=== PATIENT | male | born 1980 | race Caucasian/White ===

== ENCOUNTER 2020-05-28 07:35 | Day surgery (SDC) | payer BC, SELFPAY ==
[2020-05-14 14:53] VITALS: BMI 37.9
[2020-05-28] VITALS (7 sets, daily range): BP systolic 120–136; BP diastolic 67–94; PULSE 53–96; RESP 16; TEMP 36.3–36.8; O2SAT 95–99; BMI 37.1
[2020-05-28] MEDS: Lactated Ringers 1,000 ML 100 ML IV (08:00)
--- NOTE | 2020-05-28 08:42 | PCM.HP.BLA ---
History and Physical Date of Admission: 05/28/20 [facility] [address] [place], [place] [id number] OFFICE VISIT Date of Service: 05/14/20 MR#: [id number] Acct: [id number] Name: DARLING GODOY Rep #: [id number] : 1980 Provider: Dr. Benny Sheehan MD Age/Sex: 40/M Location: [facility] Status: Signed Intake Vital Signs 05/14/20 Height 5 ft 9 in 05/14/20 Weight: 257 lb 05/14/20 BMI 37.9 05/14/20 BP 130/83 H 05/14/20 Blood Pressure Location Rt brachial 05/14/20 Position Sitting 05/14/20 Respiration 18 05/14/20 Pulse 62 05/14/20 Pulse Source Monitor 05/14/20 Temp 97.5 F L 05/14/20 Temp Source Temporal 05/14/20 Pulse Oximetry (%) 97 05/14/20 Oxygen Delivery Method room air Intake Visit Reasons: Hemorrhoids Chief Complaint: hemorrhoids Ortho Nurse Required: No Is patient in pain?: No Allergies No Known Allergies Allergy (Unverified 05/19/20 10:17) Medications Multivitamin 1 ea PO DAILY 05/19/20 [History Confirmed 05/19/20] [facility] Medical History Hemorrhoids (Acute) Surgical History History of bilateral carpal tunnel release (Acute) History of umbilical hernia repair (Acute) Family History Grandmother Breast cancer Grandfather Diabetes Mother Hypertension Social History (Updated 05/28/20 @ 00:[address] Benny Sheehan MD) Smoking Status: Former smoker alcohol intake: current substance use type: does not use HPI HPI HPI: DARLING GODOY is a 40 M who presents to the office today for HPI HPI Surgical H&P: Yes HPI: DARLING GODOY is a 40 M who presents to the office today for Evaluation for rectal bleeding. It is 19 the patient had aphasia he has been noticing now occasional bleeding occasional pain lots of pressure. It is uncomfortable for him to sit on hard surfaces or ride a bike. ROS General General: No weight change, appetite, fatigue, colon cancer, breast cancer or weakness HEENT HEENT: No difficulty swallowing, eye injury, eye surgery, swollen glands or hoarseness Endo Endocrine: No thyroid disease, diabetes mellitus, thyroid cancer, Hair loss, heat intolerance or cold intolerance Skin Skin: No rash or changing moles Breast Breast: No left breast lump, right breast lump, nipple discharge, breast pain, abnormal mammogram, abnormal US or breast enlargement Musc Musculoskeletal: No back problems, arthritis, rheumatoid arthritis, gout or joint pain Cardio Cardiovascular: No murmur, pacemaker, heart disease, atrial fibrillation, high blood pressure, heart attack, heart stent, palpitations, shortness of breat with exertion or chest pain Psych Psychiatric: No depression, anxiety or hearing voices Resp Respiratory: No shortness of breath, No sleep apnea, No cough, No COPD, No asthma, No emphysema, No wheezing Gastro Gastrointestinal: No abdominal pain, No nausea or vomiting, No diarrhea, No constipation, No blood in stool, No acid reflux, Yes hemorrhoids, No ulcers, No gallbladder problem, No black,tarry stools Carmine Hematologic: No blood thinners, No blood disorders, No bleeding, No anemia, No blood clots Neuro Neurologic: No system reviewed and no additional complaints, except as docu, No as per HPI, No abnormal walking, No abnormal hearing, No abnormal movements, No abnormal speech, No behavioral changes, No burning sensations, No confusion, No seizure-like activity, No unsteadiness, No dizziness, No localized weakness, No frequent falls, No headache(s), No lack of coordination, No loss of vision, No memory loss, No numbness, No other visual disturbances, No radiating pain, No restless legs, No sensory deficit, No fainting, No tingling, No tremor(s), No weakness, No other Exam Const General: no acute distress, well developed, well hydrated Orientation: oriented to person, oriented to place, oriented to time [facility] Head: normocephalic, atraumatic Ears: external ears normal Mouth: moist mucous membranes Eyes Sclera: sclerae normal Pupils: normal by confrontation Neck Neck: no lymphadenopathy noted Neck mass: No Thyroid: thyroid normal, symmetrical Chest Chest palpation & inspection: normal inspection of the chest Breast Palpation: No nipple discharge Resp Effort & Inspection: normal respiratory effort Auscultation: clear to auscultation bilaterally Percussion: percussion normal Cardio Rate: regular rate Rhythm: regular rhythm Heart Sounds: no murmurs GI Palpation: soft, no hepatosplenomegaly, no masses, nontender Rectal Exam: other Other: Rectal exam deferred. Patient has minimal tenderness in the perianal area no external hemorrhoids to speak of and I really do not see any obvious fissures Extrem General: normal to inspection, no clubbing, cyanosis or edema Assessment & Plan 1. Hemorrhoids, unspecified hemorrhoid type K64.9 2. Rectal hemorrhage K62.5 Plan I have discussed the above with the patient. I have offered the patient colonoscopy for evaluation. I have explained the risks/benefits of the procedure and described the procedure. I have discussed the risks with the patient, including but not limited to: infection, bleeding, perforation of the GI tract requiring emergency surgery, inability to complete the procedure, injury to any internal organs, complications of anesthesia, etc. - the patient understands and agrees to proceed. I have answered all the patient's questions to the patient's satisfaction and the patient has no further questions. The patient has been given instructions for the colon cleansing preparation. Coding Level of Care Code Off vis,new,level 3 Diagnoses Hemorrhoids, unspecified hemorrhoid type K64.9 ??Hemorrhoid type: unspecified Rectal hemorrhage K62.5 COVID (Procedure Consent) Procedure Criteria Procedure Criteria: Yes Elective The surgeon/proceduralist and patient have discussed in detail the risk of exposure to and/or potential harm posed by the COVID-19 virus with having a surgery/procedure at this time versus the risk of? delaying the surgery/procedure. It is not possible to know either the risk of delaying the surgery or procedure or chance of getting an infection with perfect accuracy, but a joint decision was made between the patient and the surgeon/proceduralist ?to proceed at this time with the scheduled surgery/procedure as indicated on the consent form. 05/28/20 0053 <Electronically signed by Benny Sheehan MD> Date Benny Brock Signature: Date (if applicable) CC: Dr. Klarissa Jo MD ~ I have re-examined the patient. There are no clinical changes since date of exam.
--- NOTE | 2020-05-28 09:06 | OP.CCLET_ITS ---
05/28/2020 [address] [place] [address] Re : Colonoscopy procedure for Lyndon Silva Dear Dr. Jo This procedure was performed on Thursday, May 28, 2020. My impressions and recommendations are as follows: Impressions : - Non-bleeding internal hemorrhoids. No specimens collected. - The examination was otherwise normal. Recommendations : - Discharge patient to home. - Resume previous diet. - Use hydrocortisone suppository 25 mg 1 per rectum once a day for 2 weeks. - Repeat colonoscopy in 10 years for screening purposes. - Continue present medications. My findings are described in the full procedure note, which is enclosed. If I can be of further assistance, please feel free to contact me at Doctor phone number(s): , Fax: [phone], Work: . Sincerely, MD Benny Tirado MD 05/28/2020 9:06:07 AM This report has been signed electronically.
--- NOTE | 2020-05-28 09:06 | OP.COLON_ITS ---
Patient Name: Lyndon Silva Procedure Date: 05/28/2020 8:38 AM Date of : 1980 Age: 40 Procedure: Colonoscopy Indications: Rectal bleeding, Suspected hemorrhoids Providers: Benny Sheehan MD Referring MD: Klarissa Jo Medicines: See the Anesthesia note for documentation of the administered medications Patient Profile: This is a 40 year old male. Refer to note in patient chart for documentation of history and physical. Last Colonoscopy: none. The patient's first colonoscopy is today. Complications: No immediate complications. Procedure: Pre-Anesthesia Assessment: - Prior to the procedure, a History and Physical was performed, and patient medications and allergies were reviewed. The patient's tolerance of previous anesthesia was also reviewed. The risks and benefits of the procedure and the sedation options and risks were discussed with the patient. All questions were answered, and informed consent was obtained. Prior Anticoagulants: The patient has taken no previous anticoagulant or antiplatelet agents. ASA Grade Assessment: II - A patient with mild systemic disease. After reviewing the risks and benefits, the patient was deemed in satisfactory condition to undergo the procedure. After I obtained informed consent, the scope was passed under direct vision. Throughout the procedure, the patient's blood pressure, pulse, and oxygen saturations were monitored continuously. The Colonoscope was introduced through the anus and advanced to the cecum, identified by appendiceal orifice and ileocecal valve. The colonoscopy was performed without difficulty. The patient tolerated the procedure well. The quality of the bowel preparation was good. Scope In: 8:48:26 AM Scope Withdrawal Time 0 hours 6 minutes 16 seconds Scope Out: 8:57:27 AM Total Procedure Duration Time 0 hours 9 minutes 1 second Findings: Non-bleeding internal hemorrhoids were found during retroflexion. The hemorrhoids were moderate, medium-sized and Grade II (internal hemorrhoids that prolapse but reduce spontaneously). No biopsies or other specimens were collected for this exam. The patient does have irritation within his rectum. He also has circumferential hemorrhoidal disease with a larger bundle identified as well. I think he would probably benefit from having some treatment with some steroid suppositories. The exam was otherwise without abnormality. Impression: - Non-bleeding internal hemorrhoids. No specimens collected. - The examination was otherwise normal. Recommendation: - Discharge patient to home. - Resume previous diet. - Use hydrocortisone suppository 25 mg 1 per rectum once a day for 2 weeks. - Repeat colonoscopy in 10 years for screening purposes. - Continue present medications. Procedure Code(s): --- Professional --- 57437, Colonoscopy, flexible; diagnostic, including collection of specimen(s) by brushing or washing, when performed (separate procedure) Diagnosis Code(s): --- Professional --- K64.1, Second degree hemorrhoids K62.5, Hemorrhage of anus and rectum CPT copyright 2017 [employer]. All rights reserved. The codes documented in this report are preliminary and upon day treatment clinician/art therapist review may be revised to meet current compliance requirements. MD Benny Tirado MD 05/28/2020 9:06:07 AM This report has been signed electronically. Number of Addenda: 0 Note Initiated On: 05/28/2020 8:38 AM
== END 2020-05-28 09:50 | disposition home or self-care (01) ==
LOC: EN 07:36 → AC 07:36
PROVIDERS: Anesthesiology; PCP Family Medicine; Referring Provider Family Medicine; Visit Provider Surgery
PROC: 0DJD8ZZ Inspection of Lower Intestinal Tract, Via Natural or Artificial Opening Endoscopic (ICD-10-PCS; CPT 45378; principal; 2020-05-28 08:40)
DX: K64.1 Second degree hemorrhoids (principal); Z11.59 Encounter for screening for other viral diseases; Z87.891 Personal history of nicotine dependence
CPT/HCPCS: 45378; 87635; 94799; J7120; J1610; U0003

== ENCOUNTER → 2021-03-25 11:52 | Outpatient (CLI) | payer BC, SELFPAY ==
[2020-05-28 07:51] VITALS: BMI 37.1
--- NOTE | 2021-03-25 11:55 | RAD_ITS ---
STUDY: X-RAY - ABDOMEN/PELVIS REASON FOR EXAM: Male, 41 years old. ABDOMINAL PAIN TECHNIQUE: AP supine and upright views of the abdomen and pelvis. COMPARISON: None. FINDINGS: Normal visualized lung bases. There is an abundance of fecal material throughout the colon. There is no demonstrated free abdominal air. The visualized liver, spleen and kidneys are grossly normal in size and morphology. Normal soft tissue structures. Normal visualized osseous structures. RAD/Abd Inc Decub and/or Erect IMPRESSION: Large amount of fecal material is seen in the colon. Electronically Signed: Jamel Dowling MD at 15:24 EDT , Service support ,
== END ==
PROVIDERS: PCP Family Medicine; Referring Provider Family Medicine; Visit Provider Family Medicine
DX: R10.9 Unspecified abdominal pain (principal)
CPT/HCPCS: 74019

== ENCOUNTER → 2022-07-20 | Outpatient (CLI) | payer BC, SELFPAY ==
[2022-07-20 18:17] LABS: ALB/GLOB Ratio 1.1 RATIO (0.9-2.4); AST(SGOT) 29 U/L (15-37); Alanine Aminotransfer ALT/SGPT 50 U/L (16-61); Alkaline Phosphatase 41 U/L (45-117); Anion Gap 8 (5-15); BUN 15 mg/dL (7-18); BUN/Creat Ratio 16.1 RATIO (10-20); Calcium,Total 9.2 mg/dL (8.5-10.1); Chloride 106 mmol/L (98-107); Creatinine, Serum 0.93 mg/dL (0.70-1.30); EST Glomerular Filtration Rate 94 mL/min (>60); Est Glom Filt Rate - Afr Amer 114 mL/min (>60); Globulin 3.5 g/dL (2.2-4.2); Glucose 96 mg/dL (74-106); Potassium 3.9 mmol/L (3.5-5.1); Protein, Total 7.5 g/dL (6.4-8.2); Sodium Level 139 mmol/L (136-145)
[2022-07-20 18:20] LABS: Absolute Lymphocyte Count 3.48 X10^3/uL (0.83-4.51); Absolute Neutrophil Count 4.3 X10^3/uL (2.0-7.7); Basophil# 0.07 X10^3/uL; Basophil% 0.8 % (0-1); Eosinophil# 0.17 X10^3/uL; Eosinophils% 1.9 % (0-5); Hematocrit 43.2 % (40-54); Hemoglobin 15.1 g/dL (13.0-16.5); Lymphocyte # 3.48 X10^3/ul (0.83-4.51); Lymphocyte % 39.4 % (19-41); Mean Corpuscular Hgb 29.2 pg (27.0-32.0); Mean Corpuscular Volume 83.4 fL (80-94); Mean Platelet Vol. 9.9 fl (6.2-12.0); Monocyte# 0.83 X10^3/uL; Monocyte% 9.4 % (0-10); NRBC Flagged by Analyzer 0 % (0-5); Neutrophil # 4.26 X10^3/uL (2.7-7.7); Neutrophil % 48.3 % (47-70); Platelet Count 375 K/mm3 (150-450); RBC Distribution Width CV 11.8 % (11.6-14.6); RBC Distribution Width SD 35.8 fl (35.1-43.9); Red Blood Count 5.18 M/mm3 (4.6-6.2); White Blood Count 8.8 K/mm3 (4.4-11.0)
[2022-07-20 18:24] LABS: Erythrocyte Sedimentation Rate 3 mm/hr (0-20)
== END | disposition home or self-care (01) ==
LOC: MFPLAB 15:10
PROVIDERS: PCP Family Medicine; Referring Provider Family Medicine; Visit Provider Family Medicine
DX: R55 Syncope and collapse (principal)
CPT/HCPCS: 36415; 80053; 82533; 85025; 85652

== ENCOUNTER → 2024-08-09 | Outpatient (CLI) | payer BC, SELFPAY ==
[2024-08-09 12:22] LABS: Protein, Urine (Random) 19.1 mg/dL (<11.9); Protein:Creat Ratio 153 mg/g CRE (0-200)
[2024-08-09 12:29] LABS: Anion Gap 5 (5-15); BUN 14 mg/dL (7-18); BUN/Creat Ratio 13.5 RATIO (10-20); Calcium,Total 9.2 mg/dL (8.5-10.1); Chloride 106 mmol/L (98-107); Cholesterol 272 mg/dL (200); Creatinine, Serum 1.04 mg/dL (0.70-1.30); EST Glomerular Filtration Rate 82 mL/min (>60); Est Glom Filt Rate - Afr Amer 99 mL/min (>60); Glucose 95 mg/dL (74-106); High Density Lipoprotein 41 mg/dL; Sodium Level 138 mmol/L (136-145); Triglycerides 439 mg/dL
== END | disposition home or self-care (01) ==
LOC: MTLAB 09:35
PROVIDERS: PCP Family Medicine; Referring Provider Family Medicine; Visit Provider Family Medicine
DX: I10 Essential (primary) hypertension (principal)
CPT/HCPCS: 80048; 80061; 82570; 84156

== ENCOUNTER → 2024-10-31 | Outpatient (CLI) | payer BC, SELFPAY ==
[2024-10-31 15:51] LABS: AST(SGOT) 26 U/L (15-37); Alanine Aminotransfer ALT/SGPT 54 U/L (16-61); Cholesterol 169 mg/dL (200); High Density Lipoprotein 45 mg/dL; Triglycerides 254 mg/dL; Very Low Density Lipoprotein 51 mg/dL (5-40)
== END | disposition home or self-care (01) ==
LOC: MTLAB 11:21
PROVIDERS: PCP Family Medicine; Referring Provider Family Medicine; Visit Provider Family Medicine
DX: E78.2 Mixed hyperlipidemia (principal)
CPT/HCPCS: 36415; 80061; 84450; 84460

== ENCOUNTER → 2025-09-19 | Outpatient (CLI) | payer BC, SELFPAY ==
--- OUTSIDE RECORDS SUMMARY | 2025-09-19 17:36 | XMS RPT_ITS | CCD ---
Author Organization [facility] CliniSywi Care Team Providers Care Stock Plan Administrator Name Role Phone Adebayo Thee Unavailable Unavailable Klarissa Jo Unavailable Unavailable Klarissa Jo Primary Care Provider RONAK EDDY DO Attending Unavailable GUILHERME CRONIN, DR STALLINGS Primary Care Unavailable GUILHERME CRONIN, DR STALLINGS Primary Care Physician Klarissa Jo Primary Care Provider [phone] Jolliff, Klarissa S Referring Unavailable Jolliff, Klarissa S Primary Care Unavailable Jolliff, Klarissa S Attending Unavailable Jolliff, Klarissa S Attending Unavailable Jolliff, Klarissa S Referring Unavailable Jolliff, Klarissa S Primary Care Unavailable CECILIA ALY Attending Unavailable KLARISSA JO Primary Care Unavailable Allergies Allergy Classification Reported Allergen(s) Allergy Type Date of Onset Reaction(s) Facility (1 source) Azithromycin Drug Allergy [facility] [place] [address] [facility] Work Phone: (10 sources) Erythromycin; Translations: [erythromycin] Drug Allergy 09-13-2017 Rash [facility] Medications Current Medications Medication Drug Class(es) Dates Sig (Normalized) Sig (Original) [id number] 200 actuat albuterol 0.09 mg/actuat metered dose inhaler (11 sources) beta2-Adrenergic Agonist Start: 03-25-2024 take 2 puff(s) by inhalation every four hours as needed for wheezing albuterol HFA (PROVENTIL HFA, VENTOLIN HFA) 90 mcg/actuation inhaler Inhale 2 Puffs as instructed every 4 hours as needed for wheezing/shortnes s of breath. 6.7 g 03/25/2024 Active Start: 11-04-2023 take 2 puff(s) by in halation every four hours as needed for wheezing albuterol HFA (PROVENTIL HFA, VENTOLIN HFA) 90 mcg/actuation inhaler Inhale 2 Puffs as instructed every 4 hours as needed for wheezing/shortness of breath. 8 g 11/04/2023 Active Start: 10-06-2022 take 2 puff(s) by in halation every six hours as needed albuterol HFA (PROAIR HFA) 90 mcg/actuation inhaler Inhale 2 Puffs as instructed every 6 hours as needed. 8.5 g 0 10/06/2022 Active Comment on above: Inhale 2 Puffs as in structed every 6 hours as needed. benzonatate 100 mg oral capsule (3 sources) Non-narcotic Antitussive Start: take 1 capsule by mouth every eight hours as needed benzonatate (TESSALON PERLE) 100 mg capsule Take 1 capsule by mouth three times a day as needed. 21 capsule 03/25/2024 Active doxycycline hyclate 100 mg oral capsule (2 sources) Tetracycline-class Drug Start: End: 4 doxycycline hyclate 100 mg oral capsule Dose : 100 mg = 1 cap(s), Oral, BID, X 7 day(s), # 14 cap(s), 0 Refill(s), 11/14/23 8:52:00 PM EST, 118 Start Date: 11/07/23 Stop Date: 11/14/23 Status: Ordered Start: 10-06-2022 End: 10-13-2022 take 1 tablet by mouth twice daily doxycycline monohydrate 100 mg tablet Take 1 tablet by mouth twice daily for 7 days. 14 tablet 0 10/06/2022 10/13/2022 Active Comment on above: Take 1 tablet by rosalee twice daily for 7 days. hydrocortisone acetate 25 mg rectal suppository (1 source) Corticosteroid Start: take 25 mg rectal route at bedtime Hydrocortisone Acetate Active 25 MG RECTAL AT BEDTIME May 28, 2020 12:00am Multivitamin preparation (1 source) Start: Multivitamin Active 1 EACH PO DAILY May 19, 2020 12:00am Completed/Discontinued Medications Medication Drug Class(es) Dates Sig (Normalized) Sig (Original) acetaminophen 325 mg / HYDROcodone bitartrate 5 mg oral tablet (5 sources) Opioid Agonist Start: 09-20-2017 End: 03-21-2024 take 1 tablet by mouth every six hours as needed HYDROcodone-acetam inophen (NORCO) 5-325 mg per tablet Take 1 tablet by mouth every 6 hours as needed for Pain (pain greater than 5 out of 10 on a scale of 1-10). 20 tablet 09/20/2017 03/21/2024 Discontinued (Other) Comment on above: Take 1 tablet by rosalee every 6 hours as needed for Pain (pain greater than 5 out of 10 on a scale of 1-10). amoxicillin 500 mg oral tablet (4 sources) Penicillin-class Antibacterial Start: 03-21-2024 End: 03-31-2024 take 1 tablet by mouth twice daily Amoxicillin 500 mg tablet Indications: Sore throat , Exposure to strep throat Take 1 tablet by mouth two times a day for 10 days. 20 tablet 03/21/2024 03/31/2024 Inhalational Spacing Device (1 source) Start: 11-04-2023 End: 11-04-2023 Inhalational Spacing Device 1 Device one time only for 1 dose. 1 Each 11/04/2023 11/04/2023 No Reported Medications (1 source) No Reported Medications Refills: 0 Active predniSONE 20 mg oral tablet (6 sources) Start: 03-25-2024 End: 03-29-2024 take 2 tablets by mouth once daily at mealtime predniSONE (DELTASONE) 20 mg tablet Take 2 tablets by mouth once daily for 4 days. Take daily with food. 8 tablet 03/25/2024 03/29/2024 Start: 11-04-2023 End: 03-21-2024 predniSONE (DELTASONE) 10 mg tablet Take 4 tabs daily for 3 days, then 2 tabs daily for 3 days, then 1 tab daily for 3 days with food. 21 tablet 11/04/2023 03/21/2024 Discontinued (Other) Start: 10-06-2022 End: 10-11-2022 take 4 tablets by mouth once daily predniSONE (DELTASONE) 10 mg tablet Take 4 tablets by mouth once daily for 5 days. 20 tablet 0 10/06/2022 10/11/2022 Comment on above: Take 4 tablets by mo [facility] once daily for 5 days. Problems Active Problems Problem Classification Problem Date Documented Date Episodic/Chronic Chronic obstructive pulmonary disease and bronchiectasis (4 sources) Bronchitis; Translations: [Bronchitis, not specified as acute or chronic] Onset: 11-07-2023 Episodic Disorders of lipid metabolism (1 source) Mixed hyperlipidemia; Translations: [Mixed hyperlipidemia] Onset: 11-21-2024 Chronic Essential hypertension (1 source) Essential (primary) hypertension; Translations: [Essential (primary) hypertension] Onset: 09-20-2024 Chronic Fever of unknown origin (1 source) Fever; Translations: [Fever, unspecified] Episodic Hemorrhoids (1 source) Internal hemorrhoids; Translations: [Internal hemorrhoids] Episodic Immunizations and screening for infectious disease (1 source) Exposure to streptococcal pharyngitis; Translations: [Contact with and (suspected) exposure to other bacterial communicable diseases] 03-21-2024 Episodic Other lower respiratory disease (1 source) Wheezing; Translations: [Wheezing] 11-04-2023 Episodic Other lower respiratory disease (1 source) Cough; Translations: [Acute cough] 11-04-2023 Episodic Other upper respiratory infections (2 sources) Chronic sinusitis; Translations: [Chronic sinusitis, unspecified] Onset: 08-02-2025 Chronic Other upper respiratory infections (3 sources) Sore throat symptom; Translations: [Acute pharyngitis, unspecified] Episodic Residual codes; unclassified (1 source) Past history of procedure; Translations: [Other specified postprocedural states] Episodic Spondylosis; intervertebral disc disorders; other back problems (2 sources) Intervertebral disc prolapse; Translations: [Other intervertebral disc displacement, lumbar region] Chronic Spondylosis; intervertebral disc disorders; other back problems (1 source) Spinal stenosis of lumbar region; Translations: [Spinal stenosis, lumbar region without neurogenic claudication] Episodic Past or Other Problems Problem Classification Problem Date Documented Da te Episodic/Chronic Abdominal hernia (8 sources) Umbilical hernia; Translations: [Umbilical hernia without obstruction or gangrene] Onset: 09-08-2017 09-08-2017 Episodic Results Test Name Value Interpretation Reference Range Facility [facility] 08-02-2025 CNOV Office Visit (WOUCA) DARLIGN GODOY ([id number]) 1980 M Date Time Provider Department 08/02/25 12:00 PM CECILIA ALY During your visit today, we recorded the following information about you: Temperature Pulse Respiration Blood pressure 97 degrees 60/minute 18/minute 144/91 Weight 126 kg Cecilia Aly APRN.COGNOS TM1 DEVELOPER 08/02/2025 1:21 PM Signed [facility] Subjective Darling Godoy is a 45 year old male. Patient presents with: Cough: Chest congestion, wheezing x1 week Cough The patient is a 45-year-old male with a history of recurrent bronchitis presenting with cough and mild wheezing for 1 week. The patient reports a 1-week history of cough and mild wheezing. He denies fever, body aches, and significant dyspnea. The cough is non-productive and disrupts his sleep. Symptoms worsen in hot environments and improve with cool air and cool fluids. He experiences similar episodes approximately once per year, often lasting about a month. He notes that these episodes are typically triggered by exposure to dust during home projects. He reports a recent exposure while cutting old wood barn siding. He wore a mask during this activity, but only started using it today. He does not have an inhaler at home and does not use a spacer. He reports an allergy to erythromycin. His youngest daughter, who has asthma, has had similar symptoms for the past 2 weeks. Constitutional: (+) insomnia, (-) fever, (-) myalgia Respiratory: (+) cough, (+) wheezing, (-) shortness of breath, (-) sputum production No past medical history on file. PAST SURGICAL HISTORY Procedure Laterality Date PAST SURGICAL HISTORY OF Bilateral 2016 carpal tunnel release RPR UMBILICAL HRNA 5 YRS/> REDUCIBLE 09/20/2017 Hernia repair, umbilical >5yr TONSILLECTOMY HX Bilateral 1997 ALLERGIES Erthromycin [Erythromycin] MEDICATIONS rosuvastatin (CRESTOR) 5 mg tablet Take 5 mg by mouth daily at bedtime. albuterol HFA (PROVENTIL HFA, VENTOLIN HFA) 90 mcg/actuation inhaler Inhale 2 Puffs as instructed every 4 hours as needed for wheezing/shortness of breath. predniSONE (DELTASONE) 20 mg tablet Take 2 tablets by mouth once daily for 7 days. albuterol HFA (PROVENTIL HFA, VENTOLIN HFA) 90 mcg/actuation inhaler Inhale 2 puffs as instructed every 4 hours as needed for wheezing/shortness of breath. doxycycline hyclate (VIBRAMYCIN) 100 mg capsule Take 1 capsule by mouth two times a day for 7 days. albuterol HFA (PROVENTIL HFA, VENTOLIN HFA) 90 mcg/actuation inhaler Inhale 2 Puffs as instructed every 4 hours as needed for wheezing/shortness of breath. (Patient not taking: Reported on 08/02/2025) benzonatate (TESSALON PERLE) 100 mg capsule Take 1 capsule by mouth three times a day as needed. (Patient not taking: Reported on 08/02/2025) FAMILY HISTORY Problem Relation Age of Onset Hypertension Mother Hypertension Father SOCIAL HISTORY[1] Objective BP 144/91 Pulse 60 Temp 36.1 ?C (97 ?F) Resp 18 Wt 126 kg (277 lb 12.5 oz) SpO2 97% BMI 42.24 kg/m? Physical Exam Vitals and nursing note reviewed. Constitutional: General: He is not in acute distress. Appearance: Normal appearance. He is normal weight. He is not ill-appearing or toxic-appearing. HENT: Head: Normocephalic and atraumatic. Right Ear: Tympanic membrane, ear canal and external ear normal. Left Ear: Tympanic membrane, ear canal and external ear normal. Nose: Congestion present. Mouth/Throat: Pharynx: No oropharyngeal exudate or posterior oropharyngeal erythema. Eyes: Extraocular Movements: Extraocular movements intact. Conjunctiva/sclera: Conjunctivae normal. Pupils: Pupils are equal, round, and reactive to light. Cardiovascular: Rate and Rhythm: Normal rate and regular rhythm. Pulses: Normal pulses. Heart sounds: Normal heart sounds. Pulmonary: Effort: No respiratory distress. Breath sounds: No stridor. Wheezing present. No rhonchi or rales. Lymphadenopathy: Cervical: Cervical adenopathy present. Neurological: Mental Status: He is alert. { 1. Sinobronchitis (J32.9) 2. Acute cough (R05.1) - Recurrent bronchial irritation, likely triggered by environmental exposures; no fever, body aches, or productive cough; mild wheezing noted. - Start prednisone. - Start albuterol inhaler; advised use of spacer for optimal medication delivery. - Provided prescription for antibiotic to use if symptoms worsen or fever develops. - Advised use of mask when working with dust or other respiratory irritants. - Discussed importance of establishing care with a new primary care provider for ongoing management. and Recording using [employer] software for draft documentation of the visit was discussed with the patient/authorized b2b sales representative; all questions welcomed and answered. Patient/authorized b2b sales representative agreed to proceed Histo (more content not included)... Normal [facility] AST(SGOT)on 10-31-2024 AST [Catalytic activity/Vol] 26 U/L Normal 15-37 [facility] Comment on above: Performed By: #### L 501.4100, L501.4405, L500.4100 #### [facility] [address] [place], [address] Alanine Aminotransferas (SGP T)on 10-31-2024 ALT [Catalytic activity/Vol] 54 U/L Normal 16-61 [facility] Comment on above: Performed By: #### L 501.4100, L501.4405, L500.4100 #### [facility] [address] [place], [address] Lipid Profileon 10-31-2024 Cholesterol [Mass/Vol] 169 mg/dL Normal 200 [facility] Comment on above: Result Comment: <200 mg/dL Desirable 200-240 mg/dL Borderline >240 mg/dL High Risk Performed By: #### L 501.4100, L501.4405, L500.4100 #### [facility] [address] [place], [address] Cholesterol in HDL [Mass/Vol] 45 mg/dL Normal [facility] Comment on above: Result Comment: The drugs N-Acetylcysteine and Metamizole may falsely depress this assay. Reference Range HDL <40 mg/dL Low HDL Cholesterol HDL >or= 60 mg/dL High HDL Cholesterol Performed By: #### L 501.4100, L501.4405, L500.4100 #### [facility] [address] [place], [address] Cholesterol in LDL [Mass/Vol] 73 mg/dL Normal 0-130 [facility] Comment on above: Performed By: #### L 501.4100, L501.4405, L500.4100 #### [facility] [address] [place], [address] Cholesterol in VLDL [Mass/Vol] 51 mg/dL High 5-40 [facility] Comment on above: Performed By: #### L 501.4100, L501.4405, L500.4100 #### [facility] [address] [place], [address] Triglyceride [Mass/Vol] 254 mg/dL High [facility] Comment on above: Result Comment: The drugs N-Acetylcysteine and Metamizole may falsely depress this assay. Serum Triglycerides Reference Interval Normal <150 mg/dL Borderline high 150 - 199 mg/dL High 200 - 499 mg/dL Very High > or = 500 mg/dL Performed By: #### L 501.4100, L501.4405, L500.4100 #### [facility] [address] [place], [address] Basic Metabolic Profile (BMP )on 08-09-2024 BUN/CRE 13.5 RATIO Normal 10-20 [facility] Comment on above: Order Comment: Order Date: 08/06/24 Order Info: [id number] - BMP Order Info: [id number] - LIPID Performed By: #### L 500.4100, L500.2500 #### [facility] [address] [place], [address] CA,Total 9.2 mg/dL Normal 8.5-10.1 [facility] Comment on above: Order Comment: Order Date: 08/06/24 Order Info: [id number] - BMP Order Info: [id number] - LIPID Performed By: #### L 500.4100, L500.2500 #### [facility] [address] [place], [address] Chloride [Moles/Vol] 106 mmol/L Normal 98-107 [facility] Comment on above: Order Comment: Order Date: 08/06/24 Order Info: [id number] - [facility] Order Info: - LIPID Performed By: #### L 500.4100, L500.2500 #### [facility] [address] [place], [address] CO2 [Moles/Vol] 27.0 mmol/L Normal 21.0-32.0 [facility] Comment on above: Order Comment: Order Date: 08/06/24 Order Info: [id number] - [facility] Order Info: [id number] - LIPID Performed By: #### L 500.4100, L500.2500 #### [facility] [address] [place], [address] Creatinine [Mass/Vol] 1.04 mg/dL Normal 0.70-1.30 [facility] Comment on above: Order Comment: Order Date: 08/06/24 Order Info: [id number] - [facility] Order Info: [id number] - LIPID Result Comment: The validity of the calculated GFR GFRAA in patients over 70 years has not been determined. Clinical correlation is essential. Performed By: #### L 500.4100, L500.2500 #### [facility] [address] [place], [address] EST GFR - AA 99 mL/min Normal >60 [facility] Comment on above: Order Comment: Order Date: 08/06/24 Order Info: [id number] - [facility] Order Info: [id number] - LIPID Result Comment: Afri can Maldivian GFR Calc Performed By: #### L 500.4100, L500.2500 #### [facility] [address] [place], [address] GAP 5 Normal 5-15 [facility] Comment on above: Order Comment: Order Date: 08/06/24 Order Info: 06 - BMP Order Info: [id number] - LIPID Performed By: #### L 500.4100, L500.2500 #### [facility] [address] [place], [address] GFR/1.73 sq M.predicted among non-blacks MDRD (S/P/Bld) [Vol rate/Area] 82 mL/min/{1.73_m2} Normal >60 [facility] Comment on above: Order Comment: Order Date: 08/06/24 Order Info: [id number] - BMP Order Info: [id number] - LIPID Result Comment: Non- GFR Calc Performed By: #### L 500.4100, L500.2500 #### [facility] [address] [place], [address] Glucose [Mass/Vol] 95 mg/dL Normal 74-106 [facility] Comment on above: Order Comment: Order Date: 08/06/24 Order Info: 06 - [facility] Order Info: [id number] - LIPID Performed By: #### L 500.4100, L500.2500 #### [facility] [address] [place], [address] Potassium [Moles/Vol] 4.0 mmol/L Normal 3.5-5.1 [facility] Comment on above: Order Comment: Order Date: 08/06/24 Order Info: [id number] - [facility] Order Info: [id number] - LIPID Performed By: #### L 500.4100, L500.2500 #### [facility] [address] [place], [address] Sodium [Moles/Vol] 138 mmol/L Normal 136-145 [facility] Comment on above: Order Comment: Order Date: 08/06/24 Order Info: 0667- - BMP Order Info: [id number] - LIPID Performed By: #### L 500.4100, L500.2500 #### [facility] [address] [place], [address] Urea nitrogen [Mass/Vol] 14 mg/dL Normal 7-18 [facility] Comment on above: Order Comment: Order Date: 08/06/24 Order Info: [id number] - BMP Order Info: [id number] - LIPID Performed By: #### L 500.4100, L500.2500 #### [facility] [address] [place], [address] Lipid Profileon 08-09-2024 Cholesterol [Mass/Vol] 272 mg/dL High 200 [facility] Comment on above: Order Comment: Order Date: 08/06/24 Order Info: 06- - BMP Order Info: [id number] - LIPID Result Comment: <200 mg/dL Desirable 200-240 mg/dL Borderline >240 mg/dL High Risk Performed By: #### L 500.4100, L500.2500 #### [facility] [address] [place], [address] Cholesterol in HDL [Mass/Vol] 41 mg/dL Normal [facility] Comment on above: Order Comment: Order Date: 08/06/24 Order Info: 0667- - BMP Order Info: [id number] - LIPID Result Comment: The drugs N-Acetylcysteine and Metamizole may falsely depress this assay. Reference Range HDL <40 mg/dL Low HDL Cholesterol HDL >or= 60 mg/dL High HDL Cholesterol Performed By: #### L 500.4100, L500.2500 #### [facility] [address] [place], [address] LDL TNP Normal 0-130 [facility] Comment on above: Order Comment: Order Date: 08/06/24 Order Info: [id number] - BMP Order Info: [id number] - LIPID Performed By: #### L 500.4100, L500.2500 #### [facility] [address] [place], [address] Triglyceride [Mass/Vol] 439 mg/dL High [facility] Comment on above: Order Comment: Order Date: 08/06/24 Order Info: [id number] - BMP Order Info: [id number] - LIPID Result Comment: The drugs N-Acetylcysteine and Metamizole may falsely depress this assay. TRIGLYCERIDE IS GREATER THAN 400 mg/dL. LDL RESULT IS INVALID AND WILL NOT BE REPORTED. Serum Triglycerides Reference Interval Normal <150 mg/dL Borderline high 150 - 199 mg/dL High 200 - 499 mg/dL Very High > or = 500 mg/dL Performed By: #### L 500.4100, L500.2500 #### [facility] [address] [place], [address] VLDL TNP Normal 5-40 [facility] Comment on above: Order Comment: Order Date: 08/06/24 Order Info: [id number] - BMP Order Info: [id number] - LIPID Performed By: #### L 500.4100, L500.2500 #### [facility] [address] [place], [address] Protein+Creatinine Ratio,Uri neon 08-09-2024 PROT:CRE RATIO 153 mg/g CRE Normal 0-200 [facility] Comment on above: Performed By: #### L 501.0900 #### [facility] [address] [place], [address] Protein (U) [Mass/Vol] 19.1 mg/dL High <11.9 [facility] Comment on above: Performed By: #### L 501.0900 #### [facility] [address] [place], [address] UR CREAT 125.00 mg/dL Normal NO RANGE EST. [facility] Comment on above: Performed By: #### L 501.0900 #### [facility] [address] [place], [address] XR Chest PA and Lateralon IMPRESSION: No acute radiographic abnormality. Settlement Technician: CAMDEN Transcribe Date/Time: Mar 26 2024 4:36P Dictated by : CHRISTIAN COULTER MD This examination was interpreted and the report reviewed and electronically signed by: CHRISTIAN COULTER MD on Mar 26 2024 4:36PM EST DIVISION OF RADIOLOGY * * *Final Report* * * DATE OF EXAM: Mar 26 2024 4:31PM WOX [id number] - XR CHEST 2V FRONTAL/LAT / PROCEDURE REASON: Bronchitis * * * * Physician Interpretation * * * * EXAMINATION: CHEST RADIOGRAPH (2 VIEW FRONTAL & LATERAL) CLINICAL HISTORY: Bronchitis MQ: XC2_6 EXAM DATE/TIME: 03/26/2024 4:31 PM COMPARISON: 11/04/2023 RESULT: Lines, tubes, and devices: None. Lungs and pleura: No consolidation. No lung mass. No pleural effusion. No pneumothorax. Cardiomediastinal silhouette: Normal cardiomediastinal silhouette. Bones and soft tissues: Unremarkable. DIVISION OF RADIOLOGY Provider, [facility] - 03/26/2024 * * *Final Report* * * DATE OF EXAM: Mar 26 2024 4:31PM WOX [id number] - XR CHEST 2V FRONTAL/LAT / PROCEDURE REASON: Bronchitis * * * * Physician Interpretation * * * * EXAMINATION: CHEST RADIOGRAPH (2 VIEW FRONTAL & LATERAL) CLINICAL HISTORY: Bronchitis MQ: XC2_6 EXAM DATE/TIME: 03/26/2024 4:31 PM COMPARISON: 11/04/2023 RESULT: Lines, tubes, and devices: None. Lungs and pleura: No consolidation. No lung mass. No pleural effusion. No pneumothorax. Cardiomediastinal silhouette: Normal cardiomediastinal silhouette. Bones and soft tissues: Unremarkable. IMPRESSION IMPRESSION: No acute radiographic abnormality. Settlement Technician: PSCB Transcribe Date/Time: Mar 26 2024 4:36P Dictated by : CHRISTIAN COULTER MD This examination was interpreted and the report reviewed and electronically signed by: CHRISTIAN COULTER MD on Mar 26 2024 4:36PM EST [facility] Radiology Study observation (narrative) [facility] XR Chest PA and LateralOrder ed By: [facility] Provider on 03-26-2024 [facility] STREP A MOLECULAR (POC)on Procedural Control Valid [facility] Strep A (POCT) Negative Negative [facility] LABORATORYOrdered By: SYSTEM SYSTEM on 11-07-2023 Basophil, Absolute 0.1 103/mcL Normal 0.0 - 0.2 10^3/mcL AO Workflow SS Basophils/100 WBC (Bld) 0.5 % Normal 0.0 - 2.5 % AO Workflow SS Calcium [Mass/Vol] 9.3 mg/dL Normal 8.4 - 10. 2 mg/dL AO ADM SS Chloride [Moles/Vol] 103 mmol/L Normal 98 - 10 7 mmol/L AO ADM SS CO2 [Moles/Vol] 25 mmol/L Normal 22 - 29 mmol/L AO ADM SS Creatinine [Mass/Vol] 1.21 mg/dL Normal 0.70 - 1.30 mg/dL AO ADM SS Electrolyte Balance 11.0 mEq/L Normal 4.0 - 15 .0 mEq/L AO ADM SS Eosinophil, Absolute 0.0 103/mcL Normal 0.0 - 0 .4 10^3/mcL AO Workflow SS Eosinophils/100 WBC (Bld) 0.5 % Normal 0.0 - 7.0 % AO Workflow SS Erythrocyte distribution width (RBC) [Ratio] 12.5 % Normal 11.5 - 14.5 % AO Workflow SS GFR/1.73 sq M.predicted among blacks MDRD (S/P/Bld) [Vol rate/Area] 79 ml/min/1.73sqm Invalid Interpretation Code AO Chemistry S Comment on above: Interpretive Data: GFR Population mean for , Non- Americans Ages 20-29 = 116 mL/min/1.73 sq.m. Ages 30-39 = 107 mL/min/1.73 sq.m. Ages 40-49 = 99 mL/min/1.73 sq.m. Ages 50-59 = 93 mL/min/1.73 sq.m. Ages 60-69 = 85 mL/min/1.73 sq.m. Ages 70+ = 75 mL/min/1.73 sq.m. Chronic Kidney Disease: Less than 60 mL/min/1.73 square meters End Stage Renal Disease: Less than 15 mL/min/1.73 square meters GFR/1.73 sq M.predicted among non-blacks MDRD (S/P/Bld) [Vol rate/Area] 65 ml/min/1.73sqm Invalid Interpretation Code AO Chemistry S Comment on above: Interpretive Data: GFR Population mean for , Non- Americans Ages 20-29 = 116 mL/min/1.73 sq.m. Ages 30-39 = 107 mL/min/1.73 sq.m. Ages 40-49 = 99 mL/min/1.73 sq.m. Ages 50-59 = 93 mL/min/1.73 sq.m. Ages 60-69 = 85 mL/min/1.73 sq.m. Ages 70+ = 75 mL/min/1.73 sq.m. Chronic Kidney Disease: Less than 60 mL/min/1.73 square meters End Stage Renal Disease: Less than 15 mL/min/1.73 square meters Glucose [Mass/Vol] 122 mg/dL High 70 - 105 mg/dL AO ADM SS Hematocrit (Bld) [Volume fraction] 42.1 % Normal 42.0 - 52.0 % AO Workflow SS Hemoglobin (Bld) [Mass/Vol] 14.9 G/dL Normal 14.0 - 18.0 G/dL AO Workflow SS Lymphocyte, Absolute 2.2 103/mcL Normal 0.8 - 3 .9 10^3/mcL AO Workflow SS Lymphocytes/100 WBC (Bld) 20.6 % Normal 10.0 - 50.0 % AO Workflow SS MCH (RBC) [Entitic mass] 29.1 pg Normal 27.0 - 31.2 pg AO Workflow SS MCHC 35.5 G/dL High 31.8 - 35.4 G/dL AO Workflow SS MCV (RBC) [Entitic vol] 82.2 fL Normal 80.0 - 94.0 fL AO Workflow SS Monocyte distribution width Auto (Bld) [Entitic vol] 16.77 1 Normal 0.00 - 20.00 AO Workflow SS Comment on above: Result Comment: For ED adult patients suspected of sepsis, MDW<=20.0 does not rule out sepsis or risk of sepsis Monocyte, Absolute 0.5 103/mcL Normal 0.2 - 1.0 10^3/mcL AO Workflow SS Monocytes/100 WBC (Bld) 5.0 % Normal 1.7 - 13.0 % AO Workflow SS Neutrophil, Absolute 7.7 103/mcL High 2.9 - 6 .2 10^3/mcL AO Workflow SS Neutrophils/100 WBC (Bld) 73.4 % Normal 37.0 - 80.0 % AO Workflow SS Platelet mean volume (Bld) [Entitic vol] 7.2 fL Low 7.4 - 10.4 fL AO Workflow SS Platelets (Bld) [#/Vol] 355 103/mcL Normal 130 - 400 10^3/mcL AO Workflow SS Potassium [Moles/Vol] 4.2 mmol/L Normal 3.5 - 5.1 mmol/L AO ADM SS RBC (Bld) [#/Vol] 5.12 106/mcL Normal 4.04 - 6.1 3 10^6/mcL AO Workflow SS Sodium [Moles/Vol] 139 mmol/L Normal 136 - 145 mmol/L AO ADM SS Troponin I.cardiac DL <= 0.01 ng/mL [Mass/Vol] ng/L Normal 0.0 - 76.2 ng/L AO ADM SS Urea nitrogen [Mass/Vol] 16 mg/dL Normal 7 - 18 mg/dL AO ADM SS Urea nitrogen/Creatinine [Mass ratio] 13 ratio Normal 7 - 27 ratio AO ADM SS WBC (Bld) [#/Vol] 10.4 103/mcL Normal 4.6 - 10.8 10^3/mcL AO Workflow SS XR Chest PA and Lateralon IMPRESSION: No acute radiographic abnormality. Settlement Technician: PSCB Transcribe Date/Time: Nov 04 2023 4:16P Dictated by : GISELA TOMLIN MD This examination was interpreted and the report reviewed and electronically signed by: GISELA TOMLIN MD on Nov 04 2023 4:16PM [facility] DIVISION OF RADIOLOGY * * *Final Report* * * DATE OF EXAM: Nov 04 2023 4:16PM WOX 5291 - XR CHEST 2V FRONTAL/LAT / PROCEDURE REASON: multiple diagnoses * * * * Physician Interpretation * * * * EXAMINATION: CHEST RADIOGRAPH (2 VIEW FRONTAL & LATERAL) CLINICAL HISTORY: URI, acute Wheezes MQ: XC2_6 EXAM DATE/TIME: 11/04/2023 4:16 PM COMPARISON: No relevant prior studies available. RESULT: Lines, tubes, and devices: None. Lungs and pleura: Small lung volume. No consolidation. No lung mass. No pleural effusion. No pneumothorax. Cardiomediastinal silhouette: Normal cardiomediastinal silhouette. Bones and soft tissues: Unremarkable. DIVISION OF RADIOLOGY Provider, [facility] - 11/04/2023 * * *Final Report* * * DATE OF EXAM: Nov 04 2023 4:16PM WOX 5291 - XR CHEST 2V FRONTAL/LAT / PROCEDURE REASON: multiple diagnoses * * * * Physician Interpretation * * * * EXAMINATION: CHEST RADIOGRAPH (2 VIEW FRONTAL & LATERAL) CLINICAL HISTORY: URI, acute Wheezes MQ: XC2_6 EXAM DATE/TIME: 11/04/2023 4:16 PM COMPARISON: No relevant prior studies available. RESULT: Lines, tubes, and devices: None. Lungs and pleura: Small lung volume. No consolidation. No lung mass. No pleural effusion. No pneumothorax. Cardiomediastinal silhouette: Normal cardiomediastinal silhouette. Bones and soft tissues: Unremarkable. IMPRESSION IMPRESSION: No acute radiographic abnormality. Settlement Technician: CAMDNE Transcribe Date/Time: Nov 04 2023 4:16P Dictated by : GISELA TOMLIN MD This examination was interpreted and the report reviewed and electronically signed by: GISELA TOMLIN MD on Nov 04 2023 4:16PM EST [facility] Radiology Study observation (narrative) [facility] XR Chest PA and LateralOrder ed By: [facility]cf Provider on 11-04-2023 [facility] .Auto Diffon 05-16-2023 Basophil, Absolute 0.1 10 3/mcL Normal 0.0-0.2 [facility] ([place]) Comment on above: Performed By: #### C BC, GFR, PRO, ADIFF, ANEU, BMP #### [address] [address] Basophils/100 WBC (Bld) 0.9 % Normal 0.0-2.5 [facility] ([place]) Comment on above: Performed By: #### C BC, GFR, PRO, ADIFF, ANEU, BMP #### [address] [address] Eosinophil, Absolute 0.3 10 3/mcL Normal 0.0-0.4 [facility] ([place]) Comment on above: Performed By: #### C BC, GFR, PRO, ADIFF, ANEU, BMP #### [address] [place] [address] Eosinophils/100 WBC (Bld) 3.1 % Normal 0.0-7.0 [facility] ([place]) Comment on above: Performed By: #### C BC, GFR, PRO, ADIFF, ANEU, BMP #### [address] [address] Lymphocyte, Absolute 3.7 10 3/mcL Normal 0.8-3.9 [facility] ([place]) Comment on above: Performed By: #### C BC, GFR, PRO, ADIFF, ANEU, BMP #### [address] [address] Lymphocytes/100 WBC (Bld) 40.9 % Normal 10.0-50.0 [facility] ([place]) Comment on above: Performed By: #### C BC, GFR, PRO, ADIFF, ANEU, BMP #### [address] [address] Monocyte, Absolute 0.8 10 3/mcL Normal 0.2-1.0 [facility] ([place]) Comment on above: Performed By: #### C BC, GFR, PRO, ADIFF, ANEU, BMP #### [address] [address] Monocytes/100 WBC (Bld) 8.9 % Normal 1.7-13.0 [facility] ([place]) Comment on above: Performed By: #### C BC, GFR, PRO, ADIFF, ANEU, BMP #### [address] [address] Neutrophils/100 WBC (Bld) 46.2 % Normal 37.0-80.0 [facility] ([place]) Comment on above: Performed By: #### C BC, GFR, PRO, ADIFF, ANEU, BMP #### [address] [address] .GFRon 05-16-2023 GFR 104 ml/min/1.73sqm Normal [facility] ([place]) Comment on above: Result Comment: GFR Population mean for , Non- Americans Ages 20-29 = 116 mL/min/1.73 sq.m. Ages 30-39 = 107 mL/min/1.73 sq.m. Ages 40-49 = 99 mL/min/1.73 sq.m. Ages 50-59 = 93 mL/min/1.73 sq.m. Ages 60-69 = 85 mL/min/1.73 sq.m. Ages 70+ = 75 mL/min/1.73 sq.m. Chronic Kidney Disease: Less than 60 mL/min/1.73 square meters End Stage Renal Disease: Less than 15 mL/min/1.73 square meters Performed By: #### C BC, GFR, PRO, ADIFF, ANEU, BMP #### [address] [address] GFR Non- 86 ml/min/1.73sqm Normal [facility] ([place]) Comment on above: Result Comment: GFR Population mean for , Non- Americans Ages 20-29 = 116 mL/min/1.73 sq.m. Ages 30-39 = 107 mL/min/1.73 sq.m. Ages 40-49 = 99 mL/min/1.73 sq.m. Ages 50-59 = 93 mL/min/1.73 sq.m. Ages 60-69 = 85 mL/min/1.73 sq.m. Ages 70+ = 75 mL/min/1.73 sq.m. Chronic Kidney Disease: Less than 60 mL/min/1.73 square meters End Stage Renal Disease: Less than 15 mL/min/1.73 square meters Performed By: #### C BC, GFR, PRO, ADIFF, ANEU, BMP #### [address] [address] .NEUABSon 05-16-2023 Neutrophil, Absolute 4.2 10 3/mcL Normal 2.9-6.2 [facility] ([place]) Comment on above: Performed By: #### C BC, GFR, PRO, ADIFF, ANEU, BMP #### [address] [address] BMPon 05-16-2023 BUN/Creatinine Ratio 11 ratio Normal 7-27 [facility] ([place]) Comment on above: Performed By: #### C BC, GFR, PRO, ADIFF, ANEU, BMP #### [address] [address] Calcium [Mass/Vol] 9.4 mg/dL Normal 8.4-10.2 [facility] ([place]) Comment on above: Performed By: #### C BC, GFR, PRO, ADIFF, ANEU, BMP #### [address] [address] Chloride [Moles/Vol] 101 mmol/L Normal 98-107 [facility] ([place]) Comment on above: Performed By: #### C BC, GFR, PRO, ADIFF, ANEU, BMP #### [address] [address] CO2 [Moles/Vol] 29 mmol/L Normal 22-29 [facility] ([place]) Comment on above: Performed By: #### C BC, GFR, PRO, ADIFF, ANEU, BMP #### [address] [address] Creatinine [Mass/Vol] 0.95 mg/dL Normal 0.70-1.30 [facility], [facility] ([place]) Comment on above: Performed By: #### C BC, GFR, PRO, ADIFF, ANEU, BMP #### [address] [address] Electrolyte Balance 9.0 mEq/L Normal 4.0-15.0 [facility] ([place]) Comment on above: Performed By: #### C BC, GFR, PRO, ADIFF, ANEU, BMP #### [address] [address] Glucose [Mass/Vol] 93 mg/dL Normal 70-105 [facility] ([place]) Comment on above: Performed By: #### C BC, GFR, PRO, ADIFF, ANEU, BMP #### [address] [address] Potassium [Moles/Vol] 4.3 mmol/L Normal 3.5-5.1 [facility] ([place] Comment on above: Performed By: #### C BC, GFR, PRO, ADIFF, ANEU, BMP #### [address] [address] Sodium [Moles/Vol] 139 mmol/L Normal 136-145 [facility] ([place]) Comment on above: Performed By: #### C BC, GFR, PRO, ADIFF, ANEU, BMP #### [address] [address] Urea nitrogen [Mass/Vol] 10 mg/dL Normal 7-18 [facility] ([place]) Comment on above: Performed By: #### C BC, GFR, PRO, ADIFF, ANEU, BMP #### [address] [address] CBCon 05-16-2023 Erythrocyte distribution width (RBC) [Ratio] 12.7 % Normal 11.5-14.5 [facility] ([place]) Comment on above: Performed By: #### C BC, GFR, PRO, ADIFF, ANEU, BMP #### [address] [address] Hematocrit (Bld) [Volume fraction] 44.0 % Normal 42.0-52.0 [facility] ([place]) Comment on above: Performed By: #### C BC, GFR, PRO, ADIFF, ANEU, BMP #### [address] [address] Hgb 15.1 G/dL Normal 14.0-18.0 [facility] ([place]) Comment on above: Performed By: #### C BC, GFR, PRO, ADIFF, ANEU, BMP #### [address] [address] MCH (RBC) [Entitic mass] 28.4 pg Normal 27.0-31.2 [facility] ([place]) Comment on above: Performed By: #### C BC, GFR, PRO, ADIFF, ANEU, BMP #### [address] [address] MCHC 34.5 G/dL Normal 31.8-35.4 [facility] ([place] Comment on above: Performed By: #### C BC, GFR, PRO, ADIFF, ANEU, BMP #### [address] [address] MCV (RBC) [Entitic vol] 82.5 fL Normal 80.0-94.0 [facility] ([place]) Comment on above: Performed By: #### C BC, GFR, PRO, ADIFF, ANEU, BMP #### [address] [address] Platelet 350 10 3/mcL Normal 130-400 [facility] ([place]) Comment on above: Performed By: #### C BC, GFR, PRO, ADIFF, ANEU, BMP #### [address] [address] Platelet mean volume (Bld) [Entitic vol] 7.8 fL Normal 7.4-10.4 [facility] ([place]) Comment on above: Performed By: #### C BC, GFR, PRO, ADIFF, ANEU, BMP #### [address] [address] RBC 5.32 10 6/mcL Normal 4.04-6.13 [facility] ([place] Comment on above: Performed By: #### C BC, GFR, PRO, ADIFF, ANEU, BMP #### [address] [address] WBC 9.1 10 3/mcL Normal 4.6-10.8 [facility] ([place]) Comment on above: Performed By: #### C BC, GFR, PRO, ADIFF, ANEU, BMP #### [address] [address] PROon 05-16-2023 PT Coag (PPP) [Time] 11.0 s Normal 9.1-14.2 [facility] ([place]) Comment on above: Performed By: #### C BC, GFR, PRO, ADIFF, ANEU, BMP #### [address] [address] PT International Ratio 1.0 Normal [facility] ([place]) Comment on above: Result Comment: The [employer] (CHEST, 1992, [id number]) recommended therapeutic range for oral anticoagulant therapy is: LOW RISK: Prophylaxis of venous thrombosis INR: 2.0-3.0 Treatment of pulmonary embolism 2.0-3.0 Prevention of systemic embolism 2.0-3.0 HIGH RISK: Mechanical prosthetic valves 2.5-3.5 Performed By: #### C BC, GFR, PRO, ADIFF, ANEU, BMP #### [id number] [place], [place] [address] STREP A MOLECULAR (POC)on Procedural Control Valid [facility] Strep A (POCT) Negative Negative [facility] Absolute lymphocyte counton 07-20-2022 Lymphocytes Auto (Unsp spec) [#/Vol] 3.48 10*3/uL 0.83-4.51 [facility] Work Phone: Basophil percentageon 2021 Basophils/100 WBC (Bld) 0.8 % 0-1 [facility] Work Phone: Bilirubin [Mass/Vol] 0.50 mg/dL 0.20-1.00 [facility] Work Phone: Comment on above: For patients on eltr ombopag therapy, use of Dimension Dawson TBIL is not recommended. Chloride [Moles/Vol] 106 mmol/L 98-107 [facility] Work Phone: Eosinophils/100 WBC (Bld) 1.9 % 0-5 [facility] Work Phone: Glucose [Mass/Vol] 96 mg/dL 74-106 [facility] Work Phone: Neutrophils (Bld) [#/Vol] 4.3 10*3/uL 2.0-7.7 [facility] Work Phone: Neutrophils/100 WBC (Bld) 48.3 % 47-70 [facility] Work Phone: Potassium [Moles/Vol] 3.9 mmol/L 3.5-5.1 [facility] Work Phone: Protein [Mass/Vol] 7.5 g/dL 6.4-8.2 [facility] Work Phone: Sodium [Moles/Vol] 139 mmol/L 136-145 [facility] Work Phone: WBC (Bld) [#/Vol] 8.8 10*3/uL 4.4-11.0 [facility] Work Phone: Blood erythrocytes count (nu mber/volume)on 07-20-2022 RBC (Bld) [#/Vol] 5.18 10*6/uL 4.6-6.2 [facility] Work Phone: Blood hemoglobin measurement (mass/volume)on 07-20-2022 Hemoglobin (Bld) [Mass/Vol] 15.1 g/dL 13.0-16.5 [facility] Work Phone: Blood lymphocytes/100 leukoc yteson 07-20-2022 Lymphocytes/100 WBC (Bld) 39.4 % 19-41 [facility] Work Phone: Blood monocytes/100 leukocyt eson 07-20-2022 Monocytes/100 WBC (Bld) 9.4 % 0-10 [facility] Work Phone: Blood platelet mean volumeon 07-20-2022 Platelet mean volume (Bld) [Entitic vol] 9.9 fL 6.2-12.0 [facility] Work Phone: Determination of erythrocyte mean corpuscular volume (MCV)on 07-20-2022 MCV (RBC) [Entitic vol] 83.4 fL 80-94 [facility] Work Phone: Erythrocyte sedimentation ra gee 07-20-2022 ESR (Bld) [Velocity] 3 mm/h 0-20 [facility] Work Phone: Hematocrit Auto (Bld) [Volum e fraction]on 07-20-2022 Hematocrit (Bld) [Volume fraction] 43.2 % 40-54 [facility] Work Phone: Laboratory - Chemistry and C hemistry - challengeon 07-20-2022 ALP [Catalytic activity/Vol] 41 U/L 45-117 [facility] Work Phone: ALT [Catalytic activity/Vol] 50 U/L 16-61 [facility] Work Phone: CO2 [Moles/Vol] 25.0 mmol/L 21.0-32.0 [facility] Work Phone: Globulin (S) [Mass/Vol] 3.5 g/dL 2.2-4.2 [facility] Work Phone: Urea nitrogen/Creatinine [Mass ratio] 16.1 mg/mg 10-20 [facility] Work Phone: Laboratory - Hematology and Cell countson 07-20-2022 Erythrocyte distribution width (RBC) [Entitic vol] 35.8 fL 35.1-43.9 [facility] Work Phone: Erythrocyte distribution width (RBC) [Ratio] 11.8 % 11.6-14.6 [facility] Work Phone: Immature granulocytes/100 WBC (Bld) 0.200 % 0.0-0.9 [facility] Work Phone: Comment on above: IG% - Immature Granu locytes (promyelocytes, myelocytes and metamyelocytes) > 1% indicates that a LEFT SHIFT is Present. MCH (RBC) [Entitic mass] 29.2 pg 27.0-32.0 [facility] Work Phone: Nucleated RBC/100 WBC (Bld) [Ratio] 0 % 0-5 [facility] Work Phone: MCHC Auto (RBC) [Mass/Vol]on 07-20-2022 MCHC (RBC) [Mass/Vol] 35.0 g/dL 32-36 [facility] Work Phone: No Panel Informationon 07-20 Estimated GFR (MDRD) Amer 114 mL/min >60 [facility] Work Phone: Comment on above: GFR Calc Estimated GFR (MDRD) Non-Af Amer 94 mL/min >60 [facility] Work Phone: Comment on above: Non- GFR Calc Platelets bldon 07-20-2022 Platelets (Bld) [#/Vol] 375 10*3/uL 150-450 [facility] Work Phone: Serum or plasma albumin baldev urement (mass/volume)on 07-20-2022 Albumin [Mass/Vol] 4.0 g/dL 3.2-5.0 [facility] Work Phone: Serum or plasma albumin/glob ulin mass ratioon 07-20-2022 Albumin/Globulin [Mass ratio] 1.1 {ratio} 0.9-2.4 [facility] Work Phone: Serum or plasma calcium baldev urement (mass/volume)on 07-20-2022 Calcium [Mass/Vol] 9.2 mg/dL 8.5-10.1 [facility] Work Phone: Serum or plasma cortisol astrid surement (mass/volume)on 07-20-2022 Cortisol [Mass/Vol] 11.40 ug/dL 3.44-22.45 [facility] Work Phone: Comment on above: Adult (AM) 5.27 - 22 .45 ug/dL Adult (PM) 3.44 - 16.76 ug/dLPlease note revised CORTISOL reference range effective 2019. Serum or plasma creatinine m easurement (mass/volume)on 07-20-2022 Creatinine [Mass/Vol] 0.93 mg/dL 0.70-1.30 [facility] Work Phone: Comment on above: The validity of the calculated GFR & GFRAA in patients over 70 years has not been determined. Clinical correlation is essential. Serum or plasma urea nitroge n measurement (mass/volume)on 07-20-2022 Urea nitrogen [Mass/Vol] 15 mg/dL 7-18 [facility] Work Phone: Thin prep Papanicolaou smear with manual screeningon 07-20-2022 Thin prep Papanicolaou smear with manual screening 29 U/L 15-37 [facility] Work Phone: Thin prep Papanicolaou smear with manual screening 8 5-15 [facility] Work Phone: Vital Signs Date Time Vital Sign Value Performing Clinician Facility 03-25-2024 10:41-0400 Body mass index (BMI) [Ratio] 40.76 kg/m2 Krislyn Aberegg PA Work Phone: [facility] 03-25-2024 10:41-0400 Body temperature 97.3 [degF] Krislyn Aberegg PA Work Phone: [facility] 03-25-2024 10:41-0400 Body weight 121.6 kg Krislyn Aberegg PA Work Phone: [facility] 03-25-2024 10:41-0400 Diastolic blood pressure 92 mm[Hg] Krislyn Aberegg PA Work Phone: [facility] 03-25-2024 10:41-0400 Heart rate 70 /min Krislyn Aberegg PA Work Phone: [facility] 03-25-2024 10:41-0400 Respiratory rate 18 /min Krislyn Aberegg PA Work Phone: [facility] 03-25-2024 10:41-0400 SaO2% (BldA) [Mass fraction] 99 % Krislyn Aberegg PA Work Phone: [facility] 03-25-2024 10:41-0400 Systolic blood pressure 140 mm[Hg] Krislyn Aberegg PA Work Phone: [facility] 03-21-2024 16:44-0400 Body mass index (BMI) [Ratio] 41.23 kg/m2 Ilan Pena MD Work Phone: [facility] 03-21-2024 16:44-0400 Body temperature 97.59 [degF] Ilan Pena MD Work Phone: [facility] 03-21-2024 16:44-0400 Body weight 123 kg Ilan Pena MD Work Phone: [facility] 03-21-2024 16:44-0400 Diastolic blood pressure 80 mm[Hg] Ilan Pena MD Work Phone: [facility] 03-21-2024 16:44-0400 Heart rate 70 /min Ilan Pena MD Work Phone: [facility] 03-21-2024 16:44-0400 Respiratory rate 20 /min Ilan Pena MD Work Phone: [facility] 03-21-2024 16:44-0400 SaO2% (BldA) [Mass fraction] 96 % Ilan Pena MD Work Phone: [facility] 03-21-2024 16:44-0400 Systolic blood pressure 108 mm[Hg] Ilan Pena MD Work Phone: [facility] 11-07-2023 20:59-0500 Diastolic blood pressure 81 mm[Hg] MONIKA REICHFIELD DO [facility] 11-07-2023 20:59-0500 Heart rate 61 /min MONIKA REICHFIELD DO [facility] 11-07-2023 20:59-0500 Respiratory rate 16 /min MONIKA REICHFIELD DO [facility] 11-07-2023 20:59-0500 Systolic blood pressure 148 mm[Hg] MONIKA REICHFIELD DO [facility] 11-07-2023 20:05-0500 Heart rate 74 /min MONIKA REICHFIELD DO [facility] 11-07-2023 20:05-0500 Respiratory rate 18 /min MONIKA REICHFIELD DO [facility] 11-07-2023 19:50-0500 Body height 175 cm MONIKA REICHFIELD DO [facility] 11-07-2023 19:50-0500 Body temperature 98.6 [degF] MONIKA REICHFIELD DO [facility] 11-07-2023 19:50-0500 Body weight 118 kg MONIKA REICHFIELD DO [facility] 11-07-2023 19:50-0500 Diastolic Blood Pressure Non-Invasive 94 mm[Hg] MONIKA REICHFIELD DO [facility] 11-07-2023 19:50-0500 Heart rate 71 /min MONIKA REICHFIELD DO [facility] 11-07-2023 19:50-0500 Respiratory rate 18 /min MONIKA REICHFIELD DO [facility] 11-07-2023 19:50-0500 Systolic Blood Pressure Non-Invasive 148 mm[Hg] MONIKA REICHFIELD DO [facility] 12-29-2022 10:04-0400 Body temperature 100.2 [degF] Krislyn Aberegg PA Work Phone: [facility] 12-29-2022 10:04-0400 Body weight 121.56 kg Krislyn Aberegg PA Work Phone: [facility] 12-29-2022 10:04-0400 Diastolic blood pressure 74 mm[Hg] Krislyn Aberegg PA Work Phone: [facility] 12-29-2022 10:04-0400 Heart rate 96 /min Krislyn Aberegg PA Work Phone: [facility] 12-29-2022 10:04-0400 Respiratory rate 16 /min Krreginolyruslan Aberegg PA Work Phone: [facility] 12-29-2022 10:04-0400 SaO2% (BldA) [Mass fraction] 97 % Krislyn Aberegg PA Work Phone: [facility] 12-29-2022 10:04-0400 Systolic blood pressure 132 mm[Hg] Krislyn Aberegg PA Work Phone: [facility] 10-06-2022 10:13-0500 Body temperature 97.2 [degF] Ronak Pendlebury [employer] DEVELOPER Work Phone: [facility] 10-06-2022 10:13-0500 Body weight 118.03 kg [facility] [employer] DEVELOPER Work Phone: [facility] 10-06-2022 10:13-0500 Diastolic blood pressure 84 mm[Hg] Ronak Pendlebury [employer]TAIN[employer] DEVELOPER Work Phone: [facility] 10-06-2022 10:13-0500 Heart rate 68 /min Ronak Pendlebury [employer]TAIN[employer] DEVELOPER Work Phone: [facility] 10-06-2022 10:13-0500 Respiratory rate 16 /min [facility] P[employer] DEVELOPER Work Phone: [facility] 10-06-2022 10:13-0500 SaO2% (BldA) [Mass fraction] 96 % Ronak Pendlebury [employer]TAIN[employer] DEVELOPER Work Phone: [facility] 10-06-2022 10:13-0500 Systolic blood pressure 142 mm[Hg] Ronak Pendlebury [employer] DEVELOPER Work Phone: [facility] 08-06-2020 13:23-0400 BMI (Body Mass Index) 38.1 kg/m2 Thee Fiore [facility] [address] [facility] Work Phone: 08-06-2020 13:23-0400 Body Temperature 98.5 [degF] Thee Fiore PN-Qiqutow-Ptic lak e [facility] Work Phone: 08-06-2020 13:23-0400 Body weight 117.03 kg Thee Fiore MZ-Tdfqmsi-Fzcky ak e [facility] Work Phone: 08-06-2020 13:23-0400 BP Diastolic 79 mm[Hg] Thee Fiore IU-Gesoetk-Pikrv ak e [address] [facility] Work Phone: 08-06-2020 13:23-0400 BP Systolic 132 mm[Hg] Thee Fiore SD-Duttjid-Jsvre ak e [address] [facility] Work Phone: 08-06-2020 13:23-0400 BSA (Body Surface Area) 2.3 m2 Thee Fiore HT-Tnwdkgr-Kzttakt e [address] [facility] Work Phone: 08-06-2020 13:23-0400 Height 175.26 cm Thee Fiore EJ-Gynqioj-Imfjk ak e [address] [facility] Work Phone: 08-06-2020 13:23-0400 Pulse (Heart Rate) 72 /min Thee Fiore [id number] Work Phone: Encounters Encounter Date Encounter Type Care Provider Facility Start: 08-02-2025 End: 08-02-2025 ambulatory CECILIA SWANK Facility:[facility] Start: 10-31-2024 End: 10-31-2024 ambulatory Klarissa S Jolliff Facility:[facility] Start: 08-09-2024 End: 08-09-2024 ambulatory Klarissa S Jolliff Facility:[facility] Start: 03-26-2024 End: 03-26-2024 Subsequent hospital visit by physician [facility] Work Phone: Radiology Comment on above: Bronchitis [J40] Start: 03-26-2024 Telephone encounter Ilan Callejas MD Work Phone: [facility] Comment on above: Results Start: 03-25-2024 End: 03-25-2024 Patient encounter procedure Cece HINES Work Phone: [facility] Comment on above: Bronchitis (Primary Dx) Start: 03-21-2024 End: 03-21-2024 Patient encounter procedure Ilan Pena MD Work Phone: [facility] Comment on above: Sore throat (Primary Dx); Exposure to strep throat Start: 11-07-2023 End: 11-07-2023 Emergency department patient visit MONIKA MONTAGUE DO [facility] Start: 11-04-2023 End: 11-04-2023 Subsequent hospital visit by physician [facility] Work Phone: Radiology Comment on above: URI, acute [J06.9] Start: 06-20-2023 End: 07-08-2023 Physical therapy management RONAK EDDY [facility] Start: 05-16-2023 End: 05-17-2023 ambulatory RONAKBRIAN EDDY Facility:B Start: 12-31-2022 Telephone encounter Cece HINES Work Phone: [facility] Comment on above: Results Start: 12-29-2022 End: 12-29-2022 Patient encounter procedure Cece HINES Work Phone: [facility] Comment on above: Sore throat (Primary Dx); Fever, unspecified fever cause Start: 10-06-2022 End: 10-06-2022 Office outpatient visit 25 minutes Ronak Mcgrath APRN.CNP Work Phone: [facility] Comment on above: Sinobronchitis (Prim katie Dx) Start: 07-20-2022 End: 07-20-2022 ambulatory [facility] Work Phone: Start: 07-20-2022 End: 07-20-2022 Patient encounter procedure [facility] Procedures Date Procedure Procedure Detail Performing Clinician Start: 03-26-2024 Radiologic exam ches t 2 views Cece HINES Work Phone: Start: 03-21-2024 STREP A MOLECULAR (POC) Ronak Mcgrath [employer]TAIN[employer] Work Phone: Start: 11-04-2023 Radiologic exam ches t 2 views Josephine Juwan [employer]TAIN.[employer] Work Phone: Start: 12-29-2022 STREP A MOLECULAR (POC) Ronak Mcgrath [employer]AT CAPTAIN.[employer]EL[employer] Work Phone: Decompression of med mildred nerve Thee Fiore Laparoscopic repair of hernia Thee Fiore Plan of Treatment Date Care Activity Detail Author Start: 11-21-2028 Urine microalbumin profile DTaP,Tdap,Td Vaccine (8 - Td or Tdap) [facility] Start: 06-10-2024 Covid-19 Vaccine () Covid-19 Vaccine () [facility] Start: 06-10-2024 Influenza vaccination C [facility] Start: 02-10-2024 Diabetes Screening Diabetes Screenin g [facility] Start: 02-10-2024 Screening for malign ant neoplasm of colon [facility] Start: 10-10-2023 Behavioral Health Screening Behavioral Health Screening [facility] Start: 06-10-2023 Covid-19 Vaccine () Covid-19 Vaccine () [facility] Start: 12-29-2022 End: 01-12-2023 Influenza virus A and B RNA and SARS-CoV-2 (COVID-19) N gene panel - Respiratory specimen by SHIRA with probe detection COVID WITH FLUA+B, ROUTINE Microbiology Routine Fever, unspecified fever cause Expected: 12/29/2022, Expires: 01/12/2023 [facility] Work Phone: Comment on above: Expected: 12/29/2022 , Expires: 01/12/2023 Start: 10-10-2022 DEPRESSION ASSESSMENT DEPRESSION ASS ESSMENT [facility] Start: 06-10-2022 Influenza vaccination INFLUENZA (#1) [facility] Start: 04-09-2021 COVID-19 VACCINE (3 - Booster for Moderna series) COVID-19 VACCINE (3 - Booster for Moderna series) [facility] Start: 2014 Lipid panel Lipid Screening [facility] Start: 2014 LIPID SCREEN LIPID SCREEN [facility] Start: 05-09-2003 Urine microalbumin profile DTAP,TDAP,TD (7 - Tdap) [facility] Start: 1998 Hepatitis B Vaccine (1 of 3 - 19+ 3-dose series) Hepatitis B Vaccine (1 of 3 - 19+ 3-dose series) [facility] Start: 1997 Anxiety Screening Anxiety Screening [facility] Start: 1997 Depression Screening Depression Scre ening [facility] Start: 1997 HEPATITIS C SCREENING HEPATITIS C [facility] Start: 1997 Hepatitis C screening Hepatitis C [facility] Start: 1997 [facility] Start: 1997 HIV screening HIV Screening [facility] Start: 1979 HEPATITIS B (1 of 3 - 3-dose series) HEPATITIS B (1 of 3 - 3-dose series) [facility] End: 04-24-2025 XR Chest PA and Lateral XR CHEST 2V FRONTAL/LAT Radiology STAT Bronchitis 1 Occurrences starting 03/25/2024 until 04/24/2025 [facility] Work Phone: Comment on above: 1 Occurrences starti ng 03/25/2024 until 04/24/2025 Immunizations Immunization Date Immunization Notes Care Provider Alex morales 05-09-1993 diphtheria and tetan us toxoids, adsorbed for pediatric use Ronak Mcgrath APRN.[facility] Work Phone: [facility] Work Phone: 05-13-1984 diphtheria, tetanus toxoids and pertussis vaccine Ronak Mcgrath [employer] CAPTAIN[employer] Work Phone: [facility] Work Phone: 05-13-1984 trivalent poliovirus vaccine, live, oral Ronak Mcgrath [employer]TAIN[employer] Work Phone: [facility] Work Phone: 08-23-1980 diphtheria, tetanus toxoids and pertussis vaccine Ronak Mcgrath P[employer]OT [employer]AT CAPTAIN.[facility] Work Phone: [facility] Work Phone: 08-23-1980 trivalent poliovirus vaccine, live, oral Ronak Pendlebury P[employer]OT BOAT CAPTAIN.[facility] Work Phone: [facility] Work Phone: 06-14-1980 measles, mumps and rubella virus vaccine Ronak Pendlebury P[employer]OT BOAT CAPTAIN.[facility] Work Phone: [facility] Work Phone: 02-14-1980 tuberculin skin test ; purified protein derivative solution, intradermal [facility] Work Phone: [facility] 1979 diphtheria, tetanus toxoids and pertussis vaccine Ronak Pendlebury P[employer]AT CAPTAIN.[facility] Work Phone: [facility] Work Phone: 1979 trivalent poliovirus vaccine, live, oral Ronak Pendlebury P[employer]OT BOAT CAPTAIN.[facility] Work Phone: [facility] Work Phone: 1979 diphtheria, tetanus toxoids and pertussis vaccine Ronak Pendlebury P[employer]OT BOAT CAPTAIN.[facility] Work Phone: [facility] Work Phone: 1979 trivalent poliovirus vaccine, live, oral Ronak Pendlebury P[employer]OT BOAT CAPTAIN.[facility] Work Phone: [facility] Work Phone: 1979 diphtheria, tetanus toxoids and pertussis vaccine Ronak Pendlebury P[employer]OT BOAT CAPTAIN.[facility] Work Phone: [facility] Work Phone: 1979 trivalent poliovirus vaccine, live, oral Ronak Pendlebury P[employer]AT [employer]TAIN.[facility] Work Phone: [facility] Work Phone: Payers Date Payer Category Payer Self-pay [id number] 2015 Unknown [employer] BLUE CARD PPO OOS [id number] 2015-Present [phone] [address] [place] [address] PPO [id number] 2015 Unknown [id number] 1979 Unknown [id number] Private Health Insurance [employer] [id number] Unknown [id number] Unknown [id number] Social History Date Type Detail Facility Start: 06-26-2020 Tobacco smoking status IDIS Unknown if ever smoked [facility] Work Phone: Start: 1980 Sex Assigned At Male [facility] Work Phone: Start: 10-06-2022 Tobacco smoking status NHIS Never smoked tobacco [facility] Start: 10-06-2022 Tobacco use and exposure Smokeless tobacco non-user [facility] Start: 10-06-2022 End: 11-04-2023 Alcohol intake Current non-drinker of alcohol (finding) [facility] Start: 1980 Sex Assigned At Not on file [facility] Start: 09-15-2020 End: 03-21-2024 History of Social function [facility] Start: 09-15-2020 End: 03-21-2024 Tobacco use panel [facility] National Score (1-100), lower number is lower risk Not on file [facility] NEGATED: Highlighted row - - GM-Wpidwvq-Iwquryvh [address]100[address] [facility] Work Phone: Functional Status Date Assessment Result Facility 11-07-2023 [facility] Status Home Living Ad ditional Information Objective: Observation: surgical incision grossly intact without any obvious signs of infection or issue Cardiovascular screen: BP:138/95, O2 sat: 97% HR: 67 bpm Sensation: Grossly intact and symmetrical light touch bilat LE's Reflexes: Quads R: 0+ L: 0+ Achilles R: 0+ L: 0+, UE: biceps and triceps 1+ bilat Gait no apparent deficits [facility] NEGATED: Highlighted row Functional performance Functional status health issues are not documented Disease ZR-Meamfhx-Zjrwdae e [facility] Work Phone: Mental Status Date Assessment Result Facility 11-07-2023 Mental Status Orientation Orie nted x 4 [facility] 11-07-2023 Mental Status [facility] NEGATED: Highlighted row Cognitive function [Interpretation] Cognitive status health issues are not documented Disease BF-Ndgrhfi-Vxhdhhir 2099[facility] Work Phone: Clinical Notes 10-06-2022 to 08-02-2025 Telephone Encounter - Dipti Martel MA - 03/26/2024 7:18 PM EDTTelephone Encounter - Dipti Martel MA - 03/26/2024 7:18 PM EDTTelephone Encounter - Dipti Martel MA - 03/26/2024 7:16 PM EDT Note Date & Type Note Facility 08-02-2025 Note HNO ID: [id number] Author: CECILIA ALY APRN.[employer] DEVELOPER Service: ? Author Type: Nurse Practitioner Type: Progress Notes Filed: 08/02/2025 13:21 Note Text: URGENT CARE NERIS Godoy is a 45 year old male. Patient presents with: Cough: Chest congestion, wheezing x1 week Cough The patient is a 45-year-old male with a history of recurrent bronchitis presenting with cough and mild wheezing for 1 week. The patient reports a 1-week history of cough and mild wheezing. He denies fever, body aches, and significant dyspnea. The cough is non-productive and disrupts his sleep. Symptoms worsen in hot environments and improve with cool air and cool fluids. He experiences similar episodes approximately once per year, often lasting about a month. He notes that these episodes are typically triggered by exposure to dust during home projects. He reports a recent exposure while cutting old wood barn siding. He wore a mask during this activity, but only started using it today. He does not have an inhaler at home and does not use a spacer. He reports an allergy to erythromycin. His youngest daughter, who has asthma, has had similar symptoms for the past 2 weeks. Constitutional: (+) insomnia, (-) fever, (-) myalgia Respiratory: (+) cough, (+) wheezing, (-) shortness of breath, (-) sputum production No past medical history on file. PAST SURGICAL HISTORY Procedure Laterality Date PAST SURGICAL HISTORY OF Bilateral 2016 carpal tunnel release RPR UMBILICAL HRNA 5 YRS/> REDUCIBLE 09/20/2017 Hernia repair, umbilical >5yr TONSILLECTOMY HX Bilateral 1997 ALLERGIES Erthromycin [Erythromycin] MEDICATIONS rosuvastatin (CRESTOR) 5 mg tablet Take 5 mg by mouth daily at bedtime. albuterol HFA (PROVENTIL HFA, VENTOLIN HFA) 90 mcg/actuation inhaler Inhale 2 Puffs as instructed every 4 hours as needed for wheezing/shortness of breath. predniSONE (DELTASONE) 20 mg tablet Take 2 tablets by mouth once daily for 7 days. albuterol HFA (PROVENTIL HFA, VENTOLIN HFA) 90 mcg/actuation inhaler Inhale 2 puffs as instructed every 4 hours as needed for wheezing/shortness of breath. doxycycline hyclate (VIBRAMYCIN) 100 mg capsule Take 1 capsule by mouth two times a day for 7 days. albuterol HFA (PROVENTIL HFA, VENTOLIN HFA) 90 mcg/actuation inhaler Inhale 2 Puffs as instructed every 4 hours as needed for wheezing/shortness of breath. (Patient not taking: Reported on 08/02/2025) benzonatate (TESSALON PERLE) 100 mg capsule Take 1 capsule by mouth three times a day as needed. (Patient not taking: Reported on 08/02/2025) FAMILY HISTORY Problem Relation Age of Onset Hypertension Mother Hypertension Father SOCIAL HISTORY[1] Objective BP 144/91 Pulse 60 Temp 36.1 ?C (97 ?F) Resp 18 Wt 126 kg (277 lb 12.5 oz) SpO2 97% BMI 42.24 kg/m? Physical Exam Vitals and nursing note reviewed. Constitutional: General: He is not in acute distress. Appearance: Normal appearance. He is normal weight. He is not ill-appearing or toxic-appearing. HENT: Head: Normocephalic and atraumatic. Right Ear: Tympanic membrane, ear canal and external ear normal. Left Ear: Tympanic membrane, ear canal and external ear normal. Nose: Congestion present. Mouth/Throat: Pharynx: No oropharyngeal exudate or posterior oropharyngeal erythema. Eyes: Extraocular Movements: Extraocular movements intact. Conjunctiva/sclera: Conjunctivae normal. Pupils: Pupils are equal, round, and reactive to light. Cardiovascular: Rate and Rhythm: Normal rate and regular rhythm. Pulses: Normal pulses. Heart sounds: Normal heart sounds. Pulmonary: Effort: No respiratory distress. Breath sounds: No stridor. Wheezing present. No rhonchi or rales. Lymphadenopathy: Cervical: Cervical adenopathy present. Neurological: Mental Status: He is alert. { 1. Sinobronchitis (J32.9) 2. Acute cough (R05.1) - Recurrent bronchial irritation, likely triggered by environmental exposures; no fever, body aches, or productive cough; mild wheezing noted. - Start prednisone. - Start albuterol inhaler; advised use of spacer for optimal medication delivery. - Provided prescription for antibiotic to use if symptoms worsen or fever develops. - Advised use of mask when working with dust or other respiratory irritants. - Discussed importance of establishing care with a new primary care provider for ongoing management. and Recording using [employer] software for draft documentation of the visit was discussed with the patient/authorized b2b sales representative; all questions welcomed and answered. Patient/authorized b2b sales representative agreed to proceed History and Record Review External record(s) reviewed: prior outpatient record. Findings from review of outpatient records: Previous medical history Disposition The patient was discharged. OTC Medications were advised: Decongestants as needed [1] Social History Tobacco Use (more content not included)... [facility] 03-26-2024 Telephone encounter Note Pt was notified of the results. Pt verbalized understanding. [facility] 03-26-2024 Miscellaneous Notes Pt was notified of the results. Pt verbalized understanding. ----- Message from Ilan Pena MD sent at 03/26/2024 5:08 PM EDT ----- X-ray showed no pneumonia. Continue current treatment. documented in this encounter [facility] 03-26-2024 Telephone encounter Note ----- Message from Ilan Pena MD sent at 03/26/2024 5:08 PM EDT ----- X-ray showed no pneumonia. Continue current treatment. [facility] 03-26-2024 History of Presen t illness Narrative Radiology Service Progress Note PATIENT NAME: Darling Godoy DATE OF SERVICE: March 26, 2024 TIME: 4:25 PM PATIENT IDENTITY VERIFICATION COMPLETED USING TWO (2) IDENTIFIERS: Name and Date of confirmed by patient verbally. FALL SCREENING: Has the patient had 2 falls in the last year or 1 fall with injury or currently using an Ambulatory Assistive Device (Walker, Cane, Wheelchair, Crutches, etc.)? No PATIENT GENDER DATA: Male PATIENT RELEVANT IMPLANT DATA REVIEWED: Not Applicable PATIENT PRESENTS WITH AN IMPLANTABLE OR ATTACHED COMMERCIAL REAL ESTATE MANAGER: No RADIOLOGY DEPARTMENT: General X-ray: Exam(s) Completed: Chest X-Ray PERIPHERAL IV DATA: Not applicable SIGNED BY: RT Arnold(R) March 26, 2024 4:25 PM documented in this encounter [facility] 03-25-2024 History of Presen t illness Narrative This note was created using [employer]. Subjective Darling Godoy is a 44 year old male. HPI 44-year-old male presents for cough, wheezing x 5 days. Patient states he was seen here 4 days ago for sore throat and exposure to strep. Strep test was negative, but he was treated with amoxicillin due to close exposure. Patient has been taking amoxicillin. States his throat is improving. However, patient now has cough, wheezing. He states that his cough has been going on for about 5 days. Cough is worsening. He has some wheezing with shortness of breath. He denies any history of COPD or asthma, but has had bronchitis. He is not a smoker. He previously was prescribed a nebulizer and has been using albuterol nebulizer treatments with some improvement. He denies any chest pain. No fevers. He has a little bit of nasal congestion. He has not been taking anything else rysm-woh-wisajiy for symptoms. No other complaint. No past medical history on file. PAST SURGICAL HISTORY Procedure Laterality Date PAST SURGICAL HISTORY OF Bilateral 2015 carpal tunnel release RPR UMBILICAL HRNA 5 YRS/> REDUCIBLE 09/20/2017 Hernia repair, umbilical >5yr TONSILLECTOMY HX Bilateral 1997 ALLERGIES Erthromycin [Erythromycin] MEDICATIONS Amoxicillin 500 mg tablet Take 1 tablet by mouth two times a day for 10 days. albuterol HFA (PROVENTIL HFA, VENTOLIN HFA) 90 mcg/actuation inhaler Inhale 2 Puffs as instructed every 4 hours as needed for wheezing/shortness of breath. predniSONE (DELTASONE) 20 mg tablet Take 2 tablets by mouth once daily for 4 days. Take daily with food. albuterol HFA (PROVENTIL HFA, VENTOLIN HFA) 90 mcg/actuation inhaler Inhale 2 Puffs as instructed every 4 hours as needed for wheezing/shortness of breath. benzonatate (TESSALON PERLE) 100 mg capsule Take 1 capsule by mouth three times a day as needed. FAMILY HISTORY Problem Relation Age of Onset Hypertension Mother Hypertension Father Social History Tobacco Use Smoking status: Never Smokeless tobacco: Never Substance Use Topics Alcohol use: No Drug use: No Review of Systems Constitutional: Negative for chills and fever. HENT: Positive for congestion. Negative for sore throat. Respiratory: Positive for cough, shortness of breath and wheezing. Gastrointestinal: Negative for diarrhea and vomiting. Objective BP 140/92 Pulse 70 Temp 36.3 C (97.3 F) Resp 18 Wt 121.6 kg (268 lb 1.3 oz) SpO2 99% BMI 40.76 kg/m Physical Exam Vitals and nursing note reviewed. Constitutional: General: He is not in acute distress. Appearance: Normal appearance. He is not toxic-appearing. HENT: Right Ear: Tympanic membrane and ear canal normal. Left Ear: Tympanic membrane and ear canal normal. Nose: Nose normal. Mouth/Throat: Mouth: Mucous membranes are moist. Pharynx: Oropharynx is clear. Uvula midline. Posterior oropharyngeal erythema present. Comments: +tonsillectomy. Mild erythema Eyes: Conjunctiva/sclera: Conjunctivae normal. Cardiovascular: Rate and Rhythm: Normal rate and regular rhythm. Pulmonary: Effort: Pulmonary effort is normal. Breath sounds: Wheezing present. No rhonchi or rales. Lymphadenopathy: Cervical: No cervical adenopathy. Skin: General: Skin is warm and dry. Neurological: Mental Status: He is alert. Assessment and Plan ASSESSMENT/PLAN: 1. Bronchitis - ICD9: 490, ICD10: J40 -Suspect viral bronchitis. Will return tomorrow for XR to r/o pneumonia. - RX prednisone, RX tessalon Perles, RX albuterol. -On amoxicillin for strep. Throat improved. Continue this antibiotic. -No XR available at time of exam. Did recommend patient return tomorrow for XR. - XR CHEST 2V FRONTAL/LAT -If XR is positive for pneumonia, will need to add doxycycline. Patient currently on amoxicillin Diagnosis and treatment plan were discussed and questions were answered to the patient's satisfaction. Pt acknowledged understanding of concepts and follow up plan. Specific signs and symptoms that would indicate the need for higher level of care were discussed in detail warranting prompt ER evaluation. DONNY Rodrígeuz documented in this encounter [facility] 03-21-2024 History of Presen t illness Narrative Patient presents with: Sore Throat: X 2 days HPI: Feeling sore throat since yesterday. Positive symptoms: Sore throat, little Cough, Negative symptoms: Nasal Congestion, Rhinorrhea, Fever, Vomiting, Diarrhea, OTC: none MEDICATIONS: Current Outpatient Medications Medication Sig albuterol HFA (PROVENTIL HFA, VENTOLIN HFA) 90 mcg/actuation inhaler Inhale 2 Puffs as instructed every 4 hours as needed for wheezing/shortness of breath. No current facility-administered medications for this visit. ALLERGIES: ALLERGIES Allergen Reactions Erthromycin [Erythr* Rash VITALS: BP 108/80 Pulse 70 Temp 36.4 C (97.6 F) Resp 20 Wt 123 kg (271 lb 2.7 oz) SpO2 96% BMI 41.23 kg/m PHYSICAL EXAM: GEN: Pleasant, in no acute distress. HEENT: PERRL, EOMI, conjunctiva clear Ears: canals clear. TMs without erythema, bulge, or effusion Sinuses: non-tender frontal sinus, non-tender maxillary sinuses Throat: moist mucous membranes, mild erythema, no exudate Neck: supple, no thyromegaly, no lymphadenopathy HEART: regular rate and rhythm, no murmurs LUNGS: clear to auscultation, no wheezes or crackles, no increased WOB ASSESSMENT/PLAN: 1. Sore throat - ICD9: 462, ICD10: J02.9 (primary diagnosis) - STREP A MOLECULAR (POC) - negative 2. Exposure to strep throat - ICD9: V01.89, ICD10: Z20.818 His daughter is here and tested positive for strep; he has typical strep symptoms. Discussed risks and benefits of monitoring (recommended) vs empiric treatment. He would like to start antibiotic which is reasonable. - AMOXICILLIN 500 MG TABLET Ilan Pena MD documented in this encounter [facility] 11-07-2023 Hospital Discharg e instructions Patient Education 11/07/2023 20:00:43 Bronchitis, Antibiotic Treatment (Adult) Bronchitis, Antibiotic Treatment (Adult) Bronchitis is an infection of the air passages (bronchial tubes) in your lungs. It often occurs when you have a cold. This illness is contagious during the first few days and is spread through the air by coughing and sneezing, or by direct contact (touching the sick person and then touching your own eyes, nose, or mouth). Symptoms of bronchitis include cough with mucus (phlegm) and low-grade fever. Bronchitis usually lasts 7 to 14 days. Mild cases can be treated with simple home remedies. More severe infection is treated with an antibiotic. Home care Follow these guidelines when caring for yourself at home: If your symptoms are severe, rest at home for the first 2 to 3 days. When you go back to your usual activities, don't let yourself get too tired. Don't smoke. Also stay away from secondhand smoke. You may use bgcd-xnb-iktfxih medicines to control fever or pain, unless another medicine was prescribed. If you have chronic liver or kidney disease or have ever had a stomach ulcer or gastrointestinal bleeding, talk with your healthcare provider before using these medicines. Also talk to your provider if you are taking medicine to prevent blood clots. Aspirin should never be given to anyone younger than 18 who is ill with a viral infection or fever. It may cause severe liver or brain damage. Your appetite may be low, so a light diet is fine. Stay well hydrated by drinking 6 to 8 glasses of fluids per day. This includes water, soft drinks, sports drinks, juices, tea, or soup. Extra fluids will help loosen mucus in your nose and lungs. Podv-hwc-wqnltml cough, cold, and sore-throat medicines will not shorten the length of the illness, but they may be helpful to reduce your symptoms. Don't use decongestants if you have high blood pressure. Finish all antibiotic medicine. Do this even if you are feeling better after only a few days. Follow-up care Follow up with your healthcare provider, or as advised. If you had an X-ray or ECG (electrocardiogram), a specialist will review it. You will be told of any new test results that may affect your care. If you are age 65 or older, if you smoke, or if you have a chronic lung disease or condition that affects your immune system, ask your healthcare provider about getting a pneumococcal vaccine and a yearly flu shot (influenza vaccine). When to seek medical advice Call your healthcare provider right away if any of these occur: Fever of 100.4 F (38 C) or higher, or as directed by your healthcare provider Coughing up more sputum Weakness, drowsiness, headache, facial pain, ear pain, or a stiff neck Call 911 Call 911 if any of these occur. Coughing up blood Weakness, drowsiness, headache, or stiff neck that get worse Trouble breathing, wheezing, or pain with breathing [phone] [employer]. [address] [place] [address] 17754. All rights reserved. This information is not intended as a substitute for professional medical care. Always follow your healthcare professional's instructions. Follow Up Care 11/07/2023 19:46:10 With:Go to emergency room if symptoms worsen Address:Unknown When:2-4 days With:KLARISSA JO MD Address: [address] [place] [address] [id number] When:2-4 days [facility] 11-07-2023 Note Discharge Instructions Thank you for allowing [facility] to assist you with your healthcare needs. The following is important discharge information regarding your hospital visit. Diagnosis from Today's Visit Bronchitis SOB - Shortness of breath What to Do Next Instructions from Your Care Team Continue taking the inhaler and steroids as prescribed. Take doxycycline as prescribed here. Follow-up with your primary care provider. Return the emergency department if experience worsening symptoms or any other care concern. No qualifying data available. Post Acute Orders No qualifying data available. You Need to Schedule the Following Appointments Follow Up with Go to emergency room if symptoms worsen When Within 2-4 days Follow Up with KLARISSA JO MD When Within 2-4 days Where: [address] [place] [address] [id number] Allergies erythromycin (Rash) Medications Please ask your primary doctor or pharmacist before taking any other medication not listed, including over the counter drugs, herbal medications, vitamins and or supplements as they may interact with your home medications. What How Much When Instructions Last Dose New doxycycline (doxycycline hyclate 100 mg oral capsule) 1 cap by mouth Two (2) times a day Duration: 7 Days Printed Prescription Please take this list to your next doctor s visit. Bring all medications you take, including over the counter medications, herbals and other supplements with you to your doctor s visit. Patients and families are reminded to discard old lists and to update any records with all medication providers or retail pharmacies. Education Materials Bronchitis, Antibiotic Treatment (Adult) Bronchitis is an infection of the air passages (bronchial tubes) in your lungs. It often occurs when you have a cold. This illness is contagious during the first few days and is spread through the air by coughing and sneezing, or by direct contact (touching the sick person and then touching your own eyes, nose, or mouth). Symptoms of bronchitis include cough with mucus (phlegm) and low-grade fever. Bronchitis usually lasts 7 to 14 days. Mild cases can be treated with simple home remedies. More severe infection is treated with an antibiotic. Home care Follow these guidelines when caring for yourself at home: If your symptoms are severe, rest at home for the first 2 to 3 days. When you go back to your usual activities, don't let yourself get too tired. Don't smoke. Also stay away from secondhand smoke. You may use swpt-ulg-zrcxdwv medicines to control fever or pain, unless another medicine was prescribed. If you have chronic liver or kidney disease or have ever had a stomach ulcer or gastrointestinal bleeding, talk with your healthcare provider before using these medicines. Also talk to your provider if you are taking medicine to prevent blood clots. Aspirin should never be given to anyone younger than 18 who is ill with a viral infection or fever. It may cause severe liver or brain damage. Your appetite may be low, so a light diet is fine. Stay well hydrated by drinking 6 to 8 glasses of fluids per day. This includes water, soft drinks, sports drinks, juices, tea, or soup. Extra fluids will help loosen mucus in your nose and lungs. Xxij-dbd-wrfvhsq cough, cold, and sore-throat medicines will not shorten the length of the illness, but they may be helpful to reduce your symptoms. Don't use decongestants if you have high blood pressure. Finish all antibiotic medicine. Do this even if you are feeling better after only a few days. Follow-up care Follow up with your healthcare provider, or as advised. If you had an X-ray or ECG (electrocardiogram), a specialist will review it. You will be told of any new test results that may affect your care. If you are age 65 or older, if you smoke, or if you have a chronic lung disease or condition that affects your immune system, ask your healthcare provider about getting a pneumococcal vaccine and a yearly flu shot (influenza vaccine). When to seek medical advice Call your healthcare provider right away if any of these occur: Fever of 100.4 F (38 C) or higher, or as directed by your healthcare provider Coughing up more sputum Weakness, drowsiness, headache, facial pain, ear pain, or a stiff neck Call 911 Call 911 if any of these occur. Coughing up blood Weakness, drowsiness, headache, or stiff neck that get worse Trouble breathing, wheezing, or pain with breathing [id number] [employer]. [address] [place] [address] 15602. All rights reserved. This information is not intended as a substitute for professional medical care. Always follow your healthcare professional's instructions. Additional Information VACCINATE! IT SAVES LIVES! Members of the community who have not yet received the COVID-19 vaccine and would like to receive it can visit one of [facility] vaccine clinics. There are many vaccine clinic locations within the [facility]. For locations and available times, please visit www.gettheshot.coronavirus.[place]. gov/. It is important to note that some COVID mobile vaccine clinics are held outdoors and may be canceled in rainy or stormy conditions. To learn more about pediatric vaccinations (ages 5-11), we invite you to visit the [facility] webpage. https://www.[employer].org/p ages/4111-Zqoka-Jcfzgxidlcd-Freq eibxlu-Huzqp-Ykghmgcqs.html To learn more about the COVID-19 vaccine, we invite you to visit the CDC website for a list of frequently asked questions. https://www.cdc.gov/coronavirus/ 2019-ncov/vaccines/faq.html [facility] [employer] Patient Portal Access Instructions: Stay connected with your healthcare team and access your personal medical information anytime with the [employer] [employer] Patient Portal. If you would like a full copy of your medical records please contact the [facility] Medical Records Department Tuesday through Tuesday between 8a.m. and 4:30p.m. Please follow the directions below to access the portal: 1.Access the email account you provided upon registration to the [facility].2.Look for an invitation email from [facility].3.Open the email and access the invitation link: Accept Invitation to [facility]4.Fill in the required pelayo to create your account. Sign into [email or web address] with your username and password that you created in the above steps to stay up to date. You can then view a summary of results, a summary of your visits, and the ability to download your summaries to your computer or send the information securely to a physician. Remember that your healthcare information is confidential, so carefully consider who you will allow to register on the [facility] Patient Portal for access to your information. You can also access the [facility] Patient Portal on the [facility] ([facility]) frida. Simply click on Health Records under Health Data and then click on the [employer] logo. HOW TO SAFELY DISPOSE OF PRESCRIPTION MEDICATIONS Please use one of the following methods to safely dispose of your unused medications. 1.Use a drug disposal kit: the drug disposal pouch allows you to safely discard your old and unused drugs. Ask your nurse to give you one when you are discharged.2.Visit a local take-back location: Many local pharmacies and police departments have programs that collect old and unwanted prescription drugs. Call your local pharmacy or go to http://Opbeat.goDog Fetch/0F5Ab2o to find one close to you.3.Make use of household items: Use cat litter or old coffee grounds to dispose medications if other options are not available. Mix your drugs with these household products, seal them in an airtight container and throw it into the garbage. Call [facility]: [phone] to be sure your drugs can be disposed of in this way. Some medicines may require a different approach.4.Never flush your medications down the toilet. IF YOU HAVE BEEN PRESCRIBED AN OPIOIDS FOR PAIN If you have been prescribed an opioid (such as hydrocodone, oxycodone or morphine), it is critical to understand the possible side effects and risks of opioid pain medications. Even when taken as directed, opioids can have several side effects including: Tolerance, meaning you might need to take more of a medication for the same pain relief. Nausea, vomiting and/or constipation. Sleepiness, dizziness, dry mouth, confusion, depression or itching. Physical dependence, meaning you have withdrawal symptoms when a medication is stopped ? this can develop within a few days. KNOW YOUR RESPONSIBILITIES It is important to know exactly how much and how often to take the opioid pain medications you are prescribed. Never take opioids in higher amounts or more often than prescribed. Do not combine opioids with alcohol or other drugs that cause drowsiness, such as benzodiazepines, also known as benzos, including diazepam and alprazolam, muscle relaxants or sleep aids. Never sell or share prescription opioids. This is illegal. Store opioids in a secure place and out of reach of others (including children, family, friends and visitors). The last page(s) of this document has been signed and retained as a CHART COPY Signatures Patient Education Materials Bronchitis, Antibiotic Treatment (Adult) Medication Leaflets My discharge plan and instructions have been reviewed and explained to me and I,DARLING GODOY understand my current condition and have read and understand these discharge instructions. I have received a written copy of the plan/instructions. If I have questions, I am aware that I should contact my doctor. Patient/Clinical Trial Specialist Signature: Date/Time: Relationship to Patient: Witness Name/Signature: Date/Time: [facility] 11-07-2023 Note ORIGINAL EXAMINATION: TWO XRAY VIEWS OF THE CHEST 11/07/2023 8:25 pm COMPARISON: 05/16/2023 HISTORY: ORDERING SYSTEM PROVIDED HISTORY: Reason for Exam: Cough FINDINGS: The cardiomediastinal silhouette appears normal. New or increased calcified node at the right hilum. There is no focal consolidation. There is no pulmonary edema. There is no evidence of pleural effusion. There is no evidence of pneumothorax. No acute fracture is identified. IMPRESSION: No acute abnormality is identified. Interpreted by: Benny Doan Preliminary Report By: Benny Doan Electronically signed By Benny Doan Dictated Date: 11/07/2023 8:44:05 PM Prelim Date: 11/07/2023 8:45:54 PM Sign Date: 11/07/2023 8:45:54 PM Ordering Provider: MONIKA MONTAGUE [facility] 11-07-2023 Note Sinus rhythm Borderline left axis deviation Electronic Signature: MONIKA MONTAGUE DO 11/07/2023 20:27:30 [facility] 11-04-2023 History of Presen t illness Narrative Radiology Service Progress Note PATIENT NAME: Darling Godoy DATE OF SERVICE: November 04, 2023 TIME: 4:08 PM PATIENT IDENTITY VERIFICATION COMPLETED USING TWO (2) IDENTIFIERS: Name and Date of confirmed by patient verbally. FALL SCREENING: Has the patient had 2 falls in the last year or 1 fall with injury or currently using an Ambulatory Assistive Device (Walker, Cane, Wheelchair, Crutches, etc.)? No PATIENT GENDER DATA: Male PATIENT RELEVANT IMPLANT DATA REVIEWED: Yes PATIENT PRESENTS WITH AN IMPLANTABLE OR ATTACHED COMMERCIAL REAL ESTATE MANAGER: No RADIOLOGY DEPARTMENT: General X-ray: Exam(s) Completed: Chest X-Ray PERIPHERAL IV DATA: Not applicable SIGNED BY: RT Mukesh(R) November 04, 2023 4:08 PM documented in this encounter [facility] 12-31-2022 Miscellaneous Notes Patient notified and verbalized understanding of instructions given.Amber Grullon LPN Please call patient and let him know that he tested positive for influenza A. He is out of the window for Tamiflu. Please do auwn-hbx-qvvbzfc treatments such as Tylenol, Motrin, fluids. documented in this encounter [facility] 12-29-2022 History of Presen t illness Narrative This note was created using NoteWriter. Subjective Darling Godoy is a 42 year old male. HPI 42-year-old male presents for sore throat, fever, body aches since yesterday. Patient started getting body aches fevers and chills yesterday. It was 102 F. He reports a very mild sore throat. He was exposed to strep. No cough. No runny nose. No other URI symptoms. No other sick contacts. No past medical history on file. PAST SURGICAL HISTORY Procedure Laterality Date PAST SURGICAL HISTORY OF Bilateral 2016 carpal tunnel release RPR UMBILICAL HRNA 5 YRS/> REDUCIBLE 09/20/2017 Hernia repair, umbilical >5yr TONSILLECTOMY HX Bilateral 1997 ALLERGIES Erthromycin [Erythromycin] MEDICATIONS albuterol HFA (PROAIR HFA) 90 mcg/actuation inhaler Inhale 2 Puffs as instructed every 6 hours as needed. HYDROcodone-acetaminophen (NORCO) 5-325 mg per tablet Take 1 tablet by mouth every 6 hours as needed for Pain (pain greater than 5 out of 10 on a scale of 1-10). (Patient not taking: Reported on 06/13/2018 ) FAMILY HISTORY Problem Relation Age of Onset Hypertension Mother Hypertension Father Social History Tobacco Use Smoking status: Never Smokeless tobacco: Never Substance Use Topics Alcohol use: No Drug use: No Review of Systems Constitutional: Positive for chills and fever. HENT: Positive for sore throat. Negative for congestion. Respiratory: Negative for cough and shortness of breath. Gastrointestinal: Negative for diarrhea and vomiting. Musculoskeletal: Positive for myalgias. Objective BP 132/74 Pulse 96 Temp 37.9 C (100.2 F) Resp 16 Wt 121.6 kg (268 lb) SpO2 97% BMI 40.75 kg/m Physical Exam Vitals and nursing note reviewed. Constitutional: General: He is not in acute distress. Appearance: Normal appearance. He is not toxic-appearing. HENT: Right Ear: Tympanic membrane and ear canal normal. Left Ear: Ear canal normal. Nose: Nose normal. Mouth/Throat: Mouth: Mucous membranes are moist. Pharynx: Posterior oropharyngeal erythema present. Tonsils: No tonsillar exudate. Eyes: Conjunctiva/sclera: Conjunctivae normal. Cardiovascular: Rate and Rhythm: Normal rate and regular rhythm. Pulmonary: Effort: Pulmonary effort is normal. Breath sounds: Normal breath sounds. Skin: General: Skin is warm and dry. Neurological: Mental Status: He is alert. Assessment and Plan ASSESSMENT/PLAN: 1. Sore throat - ICD9: 462, ICD10: J02.9 (primary diagnosis) - suspect viral - Alere Strep Test negative, no culture pending - Discussed supportive care treatment with fluids, rest and analgesia. - The patient may also use warm salt water gargles, throat lozenges and/or OTC throat spray as needed. - STREP A MOLECULAR (POC) 2. Fever, unspecified fever cause - ICD9: 780.60, ICD10: R50.9 -Discussed supportive treatments at home including fluids, Tylenol, Motrin, OTC decongestants as needed. - COVID WITH FLUA+B, ROUTINE - out of window Tamiflu Diagnosis and treatment plan were discussed and questions were answered to the patient's satisfaction. Pt acknowledged understanding of concepts and follow up plan. Specific signs and symptoms that would indicate the need for higher level of care were discussed in detail warranting prompt ER evaluation. DONNY Rodríguez documented in this encounter [facility] 10-06-2022 History of Presen t illness Narrative Subjective HPI Nontoxic-appearing male presents urgent care chief complaint cough wheezing chest congestion. Duration of cough on and off for 6 weeks. States cough is worsened over the last few days. Presents today for evaluation. No known OTC medication use for this. States he did have a rescue inhaler before he does not use it anymore. No formal diagnosis of asthma or COPD. States he does smoke on occasions. No known sick contacts. Denies any significant pain. Denies any fever body aches chills productive cough chest pain shortness of breath pleuritic pain hemoptysis or change in bowel or bladder habits. Past medical history prescription medications allergies reviewed. .Patient presents with: Cough: Cough and congestion x 6 weeks-worse last few days History reviewed. No pertinent past medical history. PAST SURGICAL HISTORY Procedure Laterality Date PAST SURGICAL HISTORY OF Bilateral 2015 carpal tunnel release RPR UMBILICAL HRNA 5 YRS/> REDUCIBLE 09/20/2017 Hernia repair, umbilical >5yr TONSILLECTOMY HX Bilateral 1997 ALLERGIES Erthromycin [Erythromycin] MEDICATIONS doxycycline monohydrate 100 mg tablet Take 1 tablet by mouth twice daily for 7 days. predniSONE (DELTASONE) 10 mg tablet Take 4 tablets by mouth once daily for 5 days. albuterol HFA (PROAIR HFA) 90 mcg/actuation inhaler Inhale 2 Puffs as instructed every 6 hours as needed. HYDROcodone-acetaminophen (NORCO) 5-325 mg per tablet Take 1 tablet by mouth every 6 hours as needed for Pain (pain greater than 5 out of 10 on a scale of 1-10). (Patient not taking: Reported on 06/13/2018 ) FAMILY HISTORY Problem Relation Age of Onset Hypertension Mother Hypertension Father Social History Tobacco Use Smoking status: Never Smokeless tobacco: Never Substance Use Topics Alcohol use: No Drug use: No BP 142/84 Pulse 68 Temp 36.2 C (97.2 F) (Tympanic) Resp 16 Wt 118 kg (260 lb 3.2 oz) SpO2 96% BMI 39.56 kg/m Review of Systems Constitutional: Negative for chills, fever and malaise/fatigue. HENT: Negative for congestion, ear discharge, ear pain, sinus pain and sore throat. Eyes: Negative for blurred vision, pain, discharge and redness. Respiratory: Positive for cough and wheezing. Negative for hemoptysis, sputum production, shortness of breath and stridor. Cardiovascular: Negative for chest pain. Gastrointestinal: Negative for abdominal pain, diarrhea, nausea and vomiting. Musculoskeletal: Negative for myalgias. Skin: Negative for itching and rash. Neurological: Negative for dizziness and headaches. Objective Physical Exam Constitutional: General: He is not in acute distress. Appearance: He is not diaphoretic. HENT: Head: Normocephalic. Jaw: No trismus, tenderness or pain on movement. Nose: Congestion present. Right Sinus: Maxillary sinus tenderness present. Left Sinus: Maxillary sinus tenderness present. Mouth/Throat: Lips: [place]. Mouth: Mucous membranes are moist. Pharynx: Oropharynx is clear. Uvula midline. No pharyngeal swelling, oropharyngeal exudate, posterior oropharyngeal erythema or uvula swelling. Eyes: Conjunctiva/sclera: Conjunctivae normal. Pupils: Pupils are equal, round, and reactive to light. Cardiovascular: Rate and Rhythm: Normal rate and regular rhythm. Heart sounds: Normal heart sounds. Pulmonary: Effort: Pulmonary effort is normal. No tachypnea, accessory muscle usage or respiratory distress. Breath sounds: No stridor. Wheezing and rhonchi present. No rales. Abdominal: Palpations: Abdomen is soft. Tenderness: There is no abdominal tenderness. Musculoskeletal: Cervical back: Normal range of motion and neck supple. No rigidity or tenderness. Lymphadenopathy: Cervical: No cervical adenopathy. Skin: General: Skin is warm and dry. Neurological: Mental Status: He is alert and oriented to person, place, and time. ASSESSMENT/PLAN: 1. Sinobronchitis - ICD9: 473.9, 490, ICD10: J32.9, J40 Diagnosis sinobronchitis. Suspicious of underlying asthma. Did have focal rhonchi left lower lobe. Will be placed on doxycycline and prednisone. Chest x-ray offered declined x-ray at this time. Was instructed to follow-up with PCP on Tuesday for reevaluation. Red flags for prompt reevaluation discussed. Patient was educated on supportive therapies. Patient was instructed to immediately proceed to emergency room for any new, worsening, or symptoms lasting longer than anticipated. The patient's clinical presentation is otherwise unremarkable at this time. Based on exam and clinical finding, the patient is stable for discharge. Plan of care was discussed with patient. Patient verbalizes understanding and agrees to plan of care. This note was generated using [employer] software. It may contain errors in wording, punctuation, or spelling. Ronak Mcgrath APRN.ROXI documented in this encounter [facility] Evaluation + Plan note No data available for this section [facility] Evaluation note No assessment inform ation available [facility] Work Phone: Evaluation note Diagnosis Sinobronchitis- Primary Unspecified sinusitis (chronic) documented in this encounter [facility] note* Diagnosis Sore throat- Primary Acute pharyngitis Fever, unspecified fever cause documented in this encounter [facility] note* Diagnosis Sore throat- Primary Acute pharyngitis Exposure to strep throat Contact with or exposure to other communicable diseases documented in this encounter [facility] note* Diagnosis Bronchitis- Primary Bronchitis, not specified as acute or chronic documented in this encounter [facility] note* Diagnosis Bronchitis Bronchitis, not specified as acute or chronic documented in this encounter [facility] note* Diagnosis URI, acute Acute upper respiratory infections of unspecified site Wheezes Wheezing Acute cough documented in this encounter [facility] Discharge instructions No data available for this section [facility] Progress note No data available for this section [facility] Family History No Family History Records Found Mother Name Dates Details Family history of hypertensi on(V17.49, Z82.49) Status:Active Relationship Condition Age at Onset Recorded Date/T oscar grandmother Malignant neoplasm of breast Unknown grandfather Diabetes mellitus Unknown mother Hypertension Unknown Advance Directives No Advanced Directives Records Found Advance Directive Response Recorded Date/ Time Living Will No May 19 0 10:18am Power of Photoengraving Retoucher No May 19 020 10:18am Reason for Referral Specialty Diagnoses / Procedures Referred By Kelly benson Referred To Contact Ronak Mcgrath APRN.ROXI [address] [place] [address] Referral ID Status Reason Start Date Expiration Date Visits Re quested Visits Authorized [id number] Closed 1 1 Summary Purpose Additional Source Comments Goals (unrecognized section and content) Goals may be documented in a n alternate section No data available for this section No data available for this section Source Comments (unrecognize d section and content) In the event this informatio n is protected by the Federal Confidentiality of Alcohol and Drug Abuse Patient Records regulations: The Federal rules restrict any use of the information to criminally investigate or prosecute any alcohol or drug abuse patient.[facility] the event this information is protected by the Federal Confidentiality of Alcohol and Drug Abuse Patient Records regulations: The Federal rules restrict any use of the information to criminally investigate or prosecute any alcohol or drug abuse patient.[facility] the event this information is protected by the Federal Confidentiality of Alcohol and Drug Abuse Patient Records regulations: The Federal rules restrict any use of the information to criminally investigate or prosecute any alcohol or drug abuse patient.[facility] the event this information is protected by the Federal Confidentiality of Alcohol and Drug Abuse Patient Records regulations: The Federal rules restrict any use of the information to criminally investigate or prosecute any alcohol or drug abuse patient.[facility] the event this information is protected by the Federal Confidentiality of Alcohol and Drug Abuse Patient Records regulations: The Federal rules restrict any use of the information to criminally investigate or prosecute any alcohol or drug abuse patient.[facility] the event this information is protected by the Federal Confidentiality of Alcohol and Drug Abuse Patient Records regulations: The Federal rules restrict any use of the information to criminally investigate or prosecute any alcohol or drug abuse patient.[facility] the event this information is protected by the Federal Confidentiality of Alcohol and Drug Abuse Patient Records regulations: The Federal rules restrict any use of the information to criminally investigate or prosecute any alcohol or drug abuse patient.[facility] the event this information is protected by the Federal Confidentiality of Alcohol and Drug Abuse Patient Records regulations: The Federal rules restrict any use of the information to criminally investigate or prosecute any alcohol or drug abuse patient.[facility] Reason for Visit (unrecogniz ed section and content) Reason Comments Cough Cough and congestion x 6 weeks-worse last few days Reason Comments Sore Throat fever and bodyaches x 1 day Reason Comments Results Reason Comments Sore Throat X 2 days Reason Comments Sore Throat Cough, congestion, S OB x5 days, on amoxicillin Care Teams (unrecognized sec tion and content) Stock Plan Administrator Relationship Specialty Start Date End Date Klarissa Jo PCP - General Family Medicine 06/05/15 Stock Plan Administrator Relationship Specialty Start Date End Date Klarissa Jo PCP - General Family Medicine 06/05/15 Stock Plan Administrator Relationship Specialty Start Date End Date Klarissa Jo PCP - General Family Medicine 06/05/15 Stock Plan Administrator Relationship Specialty Start Date End Date Klarissa Jo PCP - General Family Medicine 06/05/15 Stock Plan Administrator Relationship Specialty Start Date End Date Klarissa Jo PCP - General Family Medicine 06/05/15 (unrecognized sect ion and content) No Status Records FoundNo Status Records FoundNo Status Records Found INFORMATION SOURCE (unrecogn ized section and content) DATE CREATED AUTHOR 05/18/2023 [facility] ([place]) DATE CREATED AUTHOR AUTHOR'S ORGANIZ ATION 11/23/2024 [facility] DATE CREATED AUTHOR AUTHOR'S ORGANIZ ATION 08/04/2025 [facility] FOR RECORDS PERTAINING TO PATIENTS WHO ARE OR HAVE BEEN ENROLLED IN A CHEMICAL DEPENDENCY/SUBSTANCEABUSE PROGRAM, SOME INFORMATION MAY BE OMITTED. This clinical summary was aggregated from multiple sources. Caution should be exercised in using it in the provision of clinical care. This summary normalizes information from multiple sources, and as a consequence, information in this document may materially change the coding, format and clinical context of patient data. In addition, data may be omitted in some cases. CLINICAL DECISIONS SHOULD BE BASED ON THE PRIMARY CLINICAL RECORDS. [employer]. provides no warranty or guarantee of the accuracy or completeness of information in this document.
[2025-09-19 17:57] LABS: Hematocrit 41.4 % (40-54); Hemoglobin 14.6 g/dL (13.0-16.5); Mean Corp Hgb Conc 35.3 g/dL (32-36); Mean Corpuscular Volume 81.8 fL (80-94); Mean Platelet Vol. 10.1 fl (6.2-12.0); Platelet Count 318 K/mm3 (150-450); RBC Distribution Width CV 11.9 % (11.6-14.6); RBC Distribution Width SD 35.0 fl (35.1-43.9); Red Blood Count 5.06 M/mm3 (4.6-6.2); White Blood Count 8.6 K/mm3 (4.4-11.0)
[2025-09-19 19:34] LABS: AST(SGOT) 30 U/L (<=37); Alanine Aminotransfer ALT/SGPT 43 U/L (<=46); Albumin, Serum 4.4 g/dL (3.5-5.0); Alkaline Phosphatase 36 U/L (40-129); Anion Gap 13 (5-15); BUN 15 mg/dL (4-19); BUN/Creat Ratio 15.7 RATIO (10-20); Calcium,Total 9.5 mg/dL (7.6-11.0); Carbon Dioxide 22.9 mmol/L (21.0-32.0); Chloride 103 mmol/L (98-108); Cholesterol 187 mg/dL (<=200); Globulin 2.4 g/dL (2.2-4.2); Glucose 92 mg/dL (70-99); Low Density Lipoprotein Calc. 96 mg/dL; Potassium 3.8 mmol/L (3.3-5.1); Triglycerides 320 mg/dL; Very Low Density Lipoprotein 64 mg/dL (5-40); Vitamin D,25 Hydroxy 24.8 ng/mL (30-100); cholesterol:hdl ratio screen 4.96
== END | disposition home or self-care (01) ==
LOC: MTLAB 14:38
PROVIDERS: PCP Family Medicine; Referring Provider Family Medicine; Visit Provider Family Medicine
DX: Z13.1 Encounter for screening for diabetes mellitus (principal); E66.01 Morbid (severe) obesity due to excess calories; I10 Essential (primary) hypertension; E78.2 Mixed hyperlipidemia
CPT/HCPCS: 36415; 80053; 80061; 82306; 83036; 84443; 85027